=== PATIENT | male | born 1975 | race Caucasian/White ===

== ENCOUNTER 2018-01-08 17:13 | Emergency (ER) | payer SELFPAY ==
--- NOTE | 2018-01-08 18:47 | ER ---
Nurse's Notes [facility] Name: Jean Montes III Age: 42 yrs Sex: Male : 1975 Arrival Date: 01/08/2018 Time: 17:16 Bed 17 Private MD: Diagnosis: Acute tonsillitis, unspecified Presentation: 01/08 17:19 Presenting complaint: Patient states: last few days, my throat is hurting, and started hj to cough and hard to catch up my breath; reports fever and chills; denies taking meds OCCUP THER:. Transition of care: patient was not received from another setting of care. Onset of symptoms was January 08, 2018. Risk Assessment: Do you want to hurt yourself or someone else? Patient reports no desire to harm self or others. Initial Sepsis Screen: Does the patient meet any 2 criteria? No. Patient's initial sepsis screen is negative. Does the patient have a suspected source of infection? No. Patient's initial sepsis screen is negative. Care prior to arrival: None. 17:19 Method Of Arrival: Ambulatory 17:19 Acuity: ANA 4 hj Triage Assessment: 17:21 General: Appears in no apparent distress. uncomfortable, Behavior is calm, cooperative, hj appropriate for age. Pain: Complains of pain in throat Pain currently is 8 out of 10 on a pain scale. EENT: Reports pain in throat when swallowing. Historical: - Allergies: 17:21 PENICILLINS; hj - Home Meds: 17:21 REFLUX MEDICATION daily [Active]; hj - PMHx: 17:21 GERD; Migraines; hj - PSHx: 17:21 Hernia repair; Knee surgery; Vasectomy; hj - Immunization history:: Adult Immunizations up to date. - Social history:: Smoking status: Patient uses tobacco products, smokes one-half pack cigarettes per day, Patient/guardian denies using alcohol. - Ebola Screening: : Patient negative for fever greater than or equal to 101.5 degrees Fahrenheit, and additional compatible Ebola Virus Disease symptoms Patient denies exposure to infectious person Patient denies travel to an Ebola-affected area in the 21 days before illness onset. - Family history:: not pertinent. - Hospitalizations: : No recent hospitalization is reported. Screenin:21 Abuse screen: Denies threats or abuse. Denies injuries from another. Nutritional hj screening: No deficits noted. Tuberculosis screening: No symptoms or risk factors identified. Fall Risk None identified. Assessment: 17:22 Respiratory: Airway is patent Respiratory effort is even, unlabored, Respiratory hj pattern is regular, symmetrical, Breath sounds are clear. EENT: Throat. 17:40 General: Appears in no apparent distress. uncomfortable, Behavior is calm, cooperative, jl7 appropriate for age. Pain: Complains of pain in sore throat. Neuro: Level of Consciousness is awake, alert, obeys commands, Oriented to person, place, time, situation. Cardiovascular: Patient's skin is warm and dry. Respiratory: Airway is patent Respiratory effort is even, unlabored, Respiratory pattern is regular, symmetrical, Breath sounds are clear bilaterally. EENT: Throat is reddened. Derm: Skin is pink, warm \T\ dry. Vital Signs: 17:22 BP 114 / 75; Pulse 90; Resp 18; Temp 97.8(TE); Pulse Ox 96% on R/A; Weight 99.79 kg; hj Height 6 ft. 1 in. (185.42 cm); Pain 8/10; 18:22 BP 123 / 76; Pulse 86; Resp 17; Pulse Ox 100% on R/A; mh5 17:22 Body Mass Index 29.03 (99.79 kg, 185.42 cm) ED Course: 17:16 Patient arrived in ED. rg4 17:20 Triage completed. hj 17:22 Arm band placed on right wrist. hj 17:22 Patient has correct armband on for positive identification. Bed in low position. Call hj light in reach. Side rails up X 1. Adult w/ patient. 17:26 Milagros Castellanos FNP is PHCP. kav 17:26 Minh Cano MD is Attending Physician. kav 17:45 Strep swab sent to lab. jl7 18:19 Jose Juan Dela Cruz, GAYLE is Primary Nurse. jl7 18:26 Pulse ox on. NIBP on. mh5 18:26 Strep Sent. 5 18:50 No provider procedures requiring assistance completed. Patient did not have IV access aa5 during this emergency room visit. Administered Medications: No medications were administered Outcome: 18:46 Discharge ordered by . kav 18:50 Discharged to home ambulatory. aa5 18:50 Condition: stable 18:50 Discharge instructions given to patient, Instructed on discharge instructions, follow up and referral plans. medication usage, Demonstrated understanding of instructions, follow-up care, medications, Prescriptions given X 2. 18:51 Patient left the ED. aa5 Signatures: Milagros Castelalnos FNP FNP kav Calderon, Audri RN RN aa5 Charanjit Warner RN RN Melissa Schwartz 4 Rekha Ruiz [facility] Jose Juan Dela Cruz RN RN jl7 Corrections: (The following items were deleted from the chart) 17:24 17:22 Pulse 90bpm; Resp 18bpm; Pulse Ox 96% RA; Temp 97.8F Temporal; 99.79 kg; Height 6 hj ft. 1 in.; BMI: 29.0; Pain 8/10; hj
--- NOTE | 2018-01-08 18:47 | EDPHYS ---
Physician Documentation [facility] Name: Jean Montes III Age: 42 yrs Sex: Male : 1975 Arrival Date: 01/08/2018 Time: 17:16 Bed 17 Private MD: ED Physician Minh Cano HPI: 01/08 17:34 This 42 yrs old Male presents to ER via Ambulatory with complaints of Sore kav Throat, Cough, Breathing Difficulty. 17:35 The patient presents with sore throat. kav 18:04 The patient describes throat pain as raw, scratchy. Onset: The symptoms/episode kav began/occurred acutely, 2 day(s) ago. Severity of symptoms: At their worst the symptoms were moderate, just prior to arrival. The patient has not experienced similar symptoms in the past. The patient has not recently seen a physician. current everyday smoker. Historical: - Allergies: 17:21 PENICILLINS; hj - Home Meds: 17:21 REFLUX MEDICATION daily [Active]; hj - PMHx: 17:21 GERD; Migraines; hj - PSHx: 17:21 Hernia repair; Knee surgery; Vasectomy; hj - Immunization history:: Adult Immunizations up to date. - Social history:: Smoking status: Patient uses tobacco products, smokes one-half pack cigarettes per day, Patient/guardian denies using alcohol. - Ebola Screening: : Patient negative for fever greater than or equal to 101.5 degrees Fahrenheit, and additional compatible Ebola Virus Disease symptoms Patient denies exposure to infectious person Patient denies travel to an Ebola-affected area in the 21 days before illness onset. - Family history:: not pertinent. - Hospitalizations: : No recent hospitalization is reported. ROS: 18:05 Constitutional: Negative for fever, chills, and weight loss, Eyes: Negative for injury, kav pain, redness, and discharge, Neck: Negative for injury, pain, and swelling, Cardiovascular: Negative for chest pain, palpitations, and edema, Respiratory: Negative for shortness of breath, cough, wheezing, and pleuritic chest pain, Abdomen/GI: Negative for abdominal pain, nausea, vomiting, diarrhea, and constipation, Back: Negative for injury and pain, : Negative for injury, bleeding, discharge, and swelling, MS/Extremity: Negative for injury and deformity, Skin: Negative for injury, rash, and discoloration, Neuro: Negative for headache, weakness, numbness, tingling, and seizure, Psych: Negative for depression, anxiety, suicide ideation, homicidal ideation, and hallucinations, Allergy/Immunology: Negative for hives, rash, and allergies, Endocrine: Negative for neck swelling, polydipsia, polyuria, polyphagia, and marked weight changes, Hematologic/Lymphatic: Negative for swollen nodes, abnormal bleeding, and unusual bruising. 18:05 ENT: Positive for sore throat, Negative for sinus congestion, difficulty swallowing, difficulty handling secretions. Exam: 18:05 Constitutional: This is a well developed, well nourished patient who is awake, alert, kav and in no acute distress. Head/Face: Normocephalic, atraumatic. Eyes: Pupils equal round and reactive to light, extra-ocular motions intact. Lids and lashes normal. Conjunctiva and sclera are non-icteric and not injected. Cornea within normal limits. Periorbital areas with no swelling, redness, or edema. Neck: Trachea midline, no thyromegaly or masses palpated, and no cervical lymphadenopathy. Supple, full range of motion without nuchal rigidity, or vertebral point tenderness. No Meningismus. Chest/axilla: Normal chest wall appearance and motion. Nontender with no deformity. No lesions are appreciated. Cardiovascular: Regular rate and rhythm with a normal S1 and S2. No gallops, murmurs, or rubs. Normal PMI, no JVD. No pulse deficits. Respiratory: Lungs have equal breath sounds bilaterally, clear to auscultation and percussion. No rales, rhonchi or wheezes noted. No increased work of breathing, no retractions or nasal flaring. Abdomen/GI: Soft, non-tender, with normal bowel sounds. No distension or tympany. No guarding or rebound. No evidence of tenderness throughout. Back: No spinal tenderness. No costovertebral tenderness. Full range of motion. Skin: Warm, dry with normal turgor. Normal color with no rashes, no lesions, and no evidence of cellulitis. MS/ Extremity: Pulses equal, no cyanosis. Neurovascular intact. Full, normal range of motion. Neuro: Awake and alert, GCS 15, oriented to person, place, time, and situation. Cranial nerves II-XII grossly intact. Motor strength 5/5 in all extremities. Sensory grossly intact. Cerebellar exam normal. Normal gait. Psych: Awake, alert, with orientation to person, place and time. Behavior, mood, and affect are within normal limits. 18:05 ENT: Posterior pharynx: erythema, that is moderate. Vital Signs: 17:22 BP 114 / 75; Pulse 90; Resp 18; Temp 97.8(TE); Pulse Ox 96% on R/A; Weight 99.79 kg; hj Height 6 ft. 1 in. (185.42 cm); Pain 8/10; 18:22 BP 123 / 76; Pulse 86; Resp 17; Pulse Ox 100% on R/A; mh5 17:22 Body Mass Index 29.03 (99.79 kg, 185.42 cm) hj MDM: 18:45 Data reviewed: vital signs, nurses notes, lab test result(s). [facility] 18:46 Medical screening is not applicable. [facility] 01/08 17:38 Order name: Strep; Complete Time: 18:45 [facility] 01/08 18:32 Order name: Throat Culture EDMS Administered Medications: No medications were administered Disposition: 18:54 Co-signature as Attending Physician, Minh Cano MD. rn Disposition: 01/08/18 18:46 Discharged to Home. Impression: Acute tonsillitis, unspecified. - Condition is Stable. - Discharge Instructions: Tonsillitis. - Prescriptions for Zithromax Z- Leno 250 mg Oral Tablet - take 1 tablet by ORAL route as directed for 5 days Day 1 - take two (2) tablets one time. Day 2, 3, 4 , 5 take one (1) tablet once daily.; 6 tablet. Medrol (Leno) 4 mg Oral Tablets, Dose Pack - take 1 tablet by ORAL route as directed - follow package instructions; 1 packet. - Medication Reconciliation Form, Thank You Letter, Antibiotic Education form. - Follow up: Private Physician; When: 5 - 6 days; Reason: If symptoms return, Recheck today's complaints, Continuance of care, Re-evaluation by your physician. - Problem is new. - Symptoms are unchanged. Signatures: Dispatcher [employer] EDMS Milagros Castellanos, BUILDINGS AND GROUNDS SUPERVISOR BUILDINGS AND GROUNDS SUPERVISOR Minh Sandra MD MD rn Calderon, Audri, RN RN [facility] Charanjit Warner RN RN hj Corrections: (The following items were deleted from the chart) 18:51 18:46 01/08/2018 18:46 Discharged to Home. Impression: Acute tonsillitis, unspecified. aa5 Condition is Stable. Forms are Medication Reconciliation Form, Thank You Letter, Antibiotic Education, Prescription Opioid Use. Follow up: Private Physician; When: 5 - 6 days; Reason: If symptoms return, Recheck today's complaints, Continuance of care, Re-evaluation by your physician. Problem is new. Symptoms are unchanged. kav
== END 2018-01-08 18:51 | disposition home or self-care (01) ==
LOC: ER 17:13
DX: J03.90 Acute tonsillitis, unspecified (principal); F17.210 Nicotine dependence, cigarettes, uncomplicated; Z88.0 Allergy status to penicillin
CPT/HCPCS: 87070; 87081; 99283

== ENCOUNTER 2018-08-18 17:45 | Emergency (ER) | payer SELFPAY ==
[2018-08-18 18:47] LABS: Absolute Monocytes 0.6 K/uL (0.1-1.3); Absolute Neutrophil 6.1 K/uL (1.8-8.0); Basophils % 0.9 % (0-1.3); Eosinophils % 3.8 % (0-4.4); Hematocrit 49.1 % (39.6-49.0); Lymphocytes % 21.8 % (15.3-44.8); Monocytes % 7.1 % (3.3-12.3); RBC Red Blood Cell Count 5.48 M/uL (4.33-5.43)
[2018-08-18 19:01] LABS: ALT/SGPT 25 U/L (12-78); AST/SGOT 15 U/L (15-37); Albumin 3.9 g/dL (3.4-5.0); Alkaline Phosphatase 101 U/L (45-117); BUN Blood Urea Nitrogen 16 mg/dL (7-18); Bicarbonate 25 mmol/L (21-32); Bilirubin Direct < 0.1 mg/dL (0-0.2); Bilirubin Total 0.3 mg/dL (0.2-1.0); Glucose Level 86 mg/dL (74-106); NT PRO-BNP 21 pg/mL (<125); Protein, Total 7.2 g/dL (6.4-8.2); Sodium Level 143 mmol/L (136-145); Troponin (Emerg Dept Use Only) < 0.02 ng/mL (0.0-0.045)
--- NOTE | 2018-08-18 19:16 | RAD REPORT ---
EXAM DESCRIPTION: RAD - Chest Single View - 08/18/2018 6:59 pm CLINICAL HISTORY: COUGH Chest pain. COMPARISON: Chest Pa And Lat (2 Views) dated 11/29/2016 FINDINGS: Portable technique limits examination quality. Mild bilateral pulmonary opacities are present likely representing pulmonary edema. Trace right pleur al effusion is seen. The heart is mildly prominent size. No displaced fractures. IMPRESSION: Mild CHF versus volume overload pattern.
[2018-08-18] MEDS ORDERED: AZITHROMYCIN 250 MG TAB ONE (19:59)
--- NOTE | 2018-08-18 21:14 | ER ---
Nurse's Notes [facility] Name: Jean Montes III Age: 43 yrs Sex: Male : 1975 Arrival Date: 08/18/2018 Time: 17:46 Bed 5 Private MD: Diagnosis: Chest pain, unspecified Presentation: 08/18 17:52 Presenting complaint: Intermittent substernal chest pain, right upper back pain, and hb SOB that started while in bed 2 nights ago. Transition of care: patient was not received from another setting of care. Onset of symptoms was August 16, 2018. Risk Assessment: Do you want to hurt yourself or someone else? Patient reports no desire to harm self or others. Care prior to arrival: None. 17:52 Method Of Arrival: Ambulatory hb 17:52 Acuity: ANA 3 hb 19:24 Initial Sepsis Screen: Does the patient meet any 2 criteria? No. Patient's initial ph sepsis screen is negative. Does the patient have a suspected source of infection? No. Patient's initial sepsis screen is negative. Historical: - Allergies: 17:55 No Known Allergies; hb - Home Meds: 17:55 Zantac Oral [Active]; hb - PMHx: 17:55 GERD; Migraines; hb - PSHx: 17:55 Hernia repair; Knee surgery; Vasectomy; hb - Immunization history:: Adult Immunizations up to date. - Social history:: Smoking status: Patient uses tobacco products, smokes one-half pack cigarettes per day, Smoking status: Patient/guardian denies using alcohol, street drugs, The patient lives with family. - Ebola Screening: : No symptoms or risks identified at this time. - Family history:: not pertinent. Screenin:21 Abuse screen: Denies threats or abuse. Denies injuries from another. Nutritional ph screening: No deficits noted. Tuberculosis screening: No symptoms or risk factors identified. Fall Risk None identified. Assessment: 18:30 General: Appears in no apparent distress. comfortable, Behavior is calm, cooperative, ph appropriate for age. Pain: Complains of pain in mid-sternal area Pain radiates to right scapular area Pain began 2-3 days ago. Neuro: Level of Consciousness is awake, alert, obeys commands, Oriented to person, place, time, situation. Cardiovascular: Reports chest pain, shortness of breath, Denies nausea, palpitations, syncope, vomiting, Capillary refill < 3 seconds in bilateral fingers Patient's skin is warm and dry. Chest pain is located in substernal area radiates to right back. Respiratory: Reports shortness of breath at rest Airway is patent Respiratory effort is even, unlabored, Respiratory pattern is regular, symmetrical. Derm: Skin is intact, is healthy with good turgor, Skin is pink, warm \T\ dry. Musculoskeletal: Circulation, motion, and sensation intact. Range of motion: intact in all extremities. 20:00 Reassessment: Patient appears in no apparent distress at this time. Patient is alert, lp1 oriented x 3, equal unlabored respirations, skin warm/dry/pink. Patient requesting to be sent home after speaking with Provider; Provider notified Patient denies pain at this time. 20:00 Respiratory: Reports shortness of breath on exertion. lp1 Vital Signs: 17:53 BP 154 / 92; Pulse 102; Resp 20; Temp 97.9; Pulse Ox 95% on R/A; Pain 6/10; hb 18:50 BP 116 / 68; Pulse 85; Resp 18; Pulse Ox 96% on R/A; ph 19:30 BP 130 / 88; Pulse 86; Resp 17; Pulse Ox 98% on R/A; lp1 20:30 BP 144 / 88; Pulse 80; Resp 14; Pulse Ox 98% on R/A; lp1 21:18 BP 117 / 75; Pulse 78; Resp 18; Pulse Ox 97% on R/A; lp1 ED Course: 17:46 Patient arrived in ED. as 17:53 Triage completed. hb 17:53 Arm band placed on. hb 17:55 Mar Chiu MD is Attending Physician. ma2 18:15 Florinda Osborn, GAYLE is Primary Nurse. ph 18:15 Inserted saline lock: 22 gauge in right antecubital area, using aseptic technique. ph Blood collected. 19:00 XRAY Chest (1 view) In Process Unspecified. EDMS 19:25 Patient has correct armband on for positive identification. Bed in low position. Call ph light in reach. Side rails up X 1. promotional advertising assistant on. Pulse ox on. NIBP on. 19:25 Patient maintains SpO2 saturation greater than 95% on room air. ph 20:30 Repeat lab(s) drawn. by me, sent to lab. lp1 20:45 No provider procedures requiring assistance completed. lp1 21:18 IV discontinued, No redness/swelling at site. Pressure dressing applied. lp1 Administered Medications: 20:30 Drug: AZITHromycin 500 mg Route: PO; lp1 21:22 Follow up: Response: No adverse reaction lp1 Outcome: 21:13 Discharge ordered by . ma2 21:18 Discharged to home ambulatory. lp1 21:18 Condition: good 21:18 Discharge instructions given to patient, Instructed on discharge instructions, follow up and referral plans. medication usage, Demonstrated understanding of instructions, follow-up care, medications, Prescriptions given X 2. 21:22 Patient left the ED. lp1 Signatures: Dispatcher [employer] EDMS Jaye Ruiz Laura, RN RN 1 Florinda Osborn RN RN ph Baxter, Heather, RN RN Mar Chiu MD MD [facility]
--- NOTE | 2018-08-18 21:14 | EDPHYS ---
Physician Documentation [facility] Name: Jean Montes III Age: 43 yrs Sex: Male : 1975 Arrival Date: 08/18/2018 Time: 17:46 Bed 5 Private MD: ED Physician Mar Chiu HPI: 08/18 19:40 This 43 yrs old Male presents to ER via Ambulatory with complaints of Chest ma2 Pain, Shortness Of Breath. 19:40 The patient or guardian reports chest pain that is located primarily in the substernal ma2 area. Onset: gradually, 1 day(s) ago. Associated signs and symptoms: Pertinent positives: cough, shortness of breath, Pertinent negatives: abdominal pain, dizziness, lower extremity pain. The chest pain is described as aching. Duration: The patient or guardian reports multiple episodes. Severity of pain: At its worst the pain was mild in the emergency department the pain is unchanged. The patient has not experienced similar symptoms in the past. . Historical: - Allergies: 17:55 No Known Allergies; hb - Home Meds: 17:55 Zantac Oral [Active]; hb - PMHx: 17:55 GERD; Migraines; hb - PSHx: 17:55 Hernia repair; Knee surgery; Vasectomy; hb - Immunization history:: Adult Immunizations up to date. - Social history:: Smoking status: Patient uses tobacco products, smokes one-half pack cigarettes per day, Smoking status: Patient/guardian denies using alcohol, street drugs, The patient lives with family. - Ebola Screening: : No symptoms or risks identified at this time. - Family history:: not pertinent. ROS: 19:40 Constitutional: Negative for fever, chills, and weight loss. ma2 19:40 Respiratory: Negative for shortness of breath, cough, wheezing, and pleuritic chest pain, Abdomen/GI: Negative for abdominal pain, nausea, diarrhea, and constipation, Back: Negative for injury and pain, Neuro: Negative for headache, weakness, numbness, tingling, and seizure, Psych: Negative for depression, anxiety, suicide ideation, homicidal ideation, and hallucinations. 19:40 Cardiovascular: Positive for chest pain, Negative for palpitations, acute changes. 19:40 All other systems are negative. Exam: 19:40 Constitutional: This is a well developed, well nourished patient who is awake, alert, ma2 and in no acute distress. Eyes: Pupils equal round and reactive to light, extra-ocular motions intact. Lids and lashes normal. Conjunctiva and sclera are non-icteric and not injected. Cornea within normal limits. Periorbital areas with no swelling, redness, or edema. ENT: Nares patent. No nasal discharge, no septal abnormalities noted. Tympanic membranes are normal and external auditory canals are clear. Oropharynx with no redness, swelling, or masses, exudates, or evidence of obstruction, uvula midline. Mucous membranes moist. Chest/axilla: Normal chest wall appearance and motion. Nontender with no deformity. No lesions are appreciated. Cardiovascular: Regular rate and rhythm with a normal S1 and S2. No gallops, murmurs, or rubs. Normal PMI, no JVD. No pulse deficits. Respiratory: Lungs have equal breath sounds bilaterally, clear to auscultation and percussion. No rales, rhonchi or wheezes noted. No increased work of breathing, no retractions or nasal flaring. Abdomen/GI: Soft, non-tender, with normal bowel sounds. No distension or tympany. No guarding or rebound. No evidence of tenderness throughout. Skin: Warm, dry with normal turgor. Normal color with no rashes, no lesions, and no evidence of cellulitis. MS/ Extremity: Pulses equal, no cyanosis. Neurovascular intact. Full, normal range of motion. Neuro: Awake and alert, GCS 15, oriented to person, place, time, and situation. Cranial nerves II-XII grossly intact. Motor strength 5/5 in all extremities. Sensory grossly intact. Cerebellar exam normal. Normal gait. Vital Signs: 17:53 BP 154 / 92; Pulse 102; Resp 20; Temp 97.9; Pulse Ox 95% on R/A; Pain 6/10; hb 18:50 BP 116 / 68; Pulse 85; Resp 18; Pulse Ox 96% on R/A; ph 19:30 BP 130 / 88; Pulse 86; Resp 17; Pulse Ox 98% on R/A; lp1 20:30 BP 144 / 88; Pulse 80; Resp 14; Pulse Ox 98% on R/A; lp1 21:18 BP 117 / 75; Pulse 78; Resp 18; Pulse Ox 97% on R/A; lp1 MDM: 17:55 Patient medically screened. ma2 19:40 Differential diagnosis: acute pericarditis, anxiety, coronary artery disease ma2 gastroesophageal reflux disease (GERD), stable angina. HEART Score: History:. Data reviewed: vital signs, nurses notes. Counseling: I had a detailed discussion with the patient and/or guardian regarding: the historical points, exam findings, and any diagnostic results supporting the discharge/admit diagnosis, the presence of at least one elevated blood pressure reading (>120/80) during this emergency department visit, the need for outpatient follow up. ED course: patient need to be admitted for acs rule out, he does not want to be admitted i discussed risk of leaving includes having mi and worsening outcome that may include , try to keep him in for repeat trop he did not agree to stay 4 hours, however after negotiating he will stay 2 hrs and get a repeated trop and then see his pcp tomorrow for further evaluation . 08/18 18:18 Order name: Basic Metabolic Panel; Complete Time: 19:12 ne2 08/18 18:18 Order name: CBC with Diff; Complete Time: 19:12 ne2 08/18 18:18 Order name: LFT's; Complete Time: 19:12 ne2 08/18 18:18 Order name: Magnesium; Complete Time: 19:12 ne2 08/18 18:18 Order name: NT PRO-BNP; Complete Time: 19:12 ma2 08/18 18:18 Order name: PT-INR; Complete Time: 19:12 ne2 08/18 18:18 Order name: Troponin (emerg Dept Use Only); Complete Time: 19:12 ne2 08/18 18:18 Order name: XRAY Chest (1 view); Complete Time: 19:33 ma2 08/18 18:18 Order name: EKG; Complete Time: 18:19 ma2 08/18 18:18 Order name: Cardiac monitoring; Complete Time: 18:29 ma2 08/18 18:18 Order name: EKG - Nurse/Tech; Complete Time: 18:29 ma2 08/18 19:40 Order name: Troponin I: repeat troponin at 8:30 ma2 08/18 19:40 Order name: Troponin I; Complete Time: 21:13 EDMS 08/18 18:18 Order name: IV Saline Lock; Complete Time: 18:30 ma2 08/18 18:18 Order name: Labs collected and sent; Complete Time: 18:30 ma2 08/18 18:18 Order name: O2 Per Protocol; Complete Time: 18:30 ma2 08/18 18:18 Order name: O2 Sat Monitoring; Complete Time: 18:30 ma2 Administered Medications: 20:30 Drug: AZITHromycin 500 mg Route: PO; lp1 21:22 Follow up: Response: No adverse reaction lp1 Disposition: 08/18/18 21:13 Discharged to Home. Impression: Chest pain, unspecified. - Condition is Stable. - Discharge Instructions: Nonspecific Chest Pain. - Prescriptions for Zithromax Z- Leno 250 mg Oral Tablet - take 1 tablet by ORAL route as directed for 5 days Day 1 - take two (2) tablets one time. Day 2, 3, 4 , 5 take one (1) tablet once daily.; 6 tablet. Tylenol- Codeine #3 300-30 mg Oral Tablet - take 2 tablet by ORAL route every 6 hours As needed; 30 tablet. - Medication Reconciliation Form, Thank You Letter, Antibiotic Education, Prescription Opioid Use form. - Follow up: Private Physician; When: Tomorrow; Reason: Continuance of care. Signatures: Dispatcher [employer] EDTegan Loera RN RN lp1 Keli Anderson RN RN Mar Chiu MD MD ma2 Corrections: (The following items were deleted from the chart) 21:22 21:13 08/18/2018 21:13 Discharged to Home. Impression: Chest pain, unspecified. lp1 Condition is Stable. Discharge Instructions: Nonspecific Chest Pain. Prescriptions for Zithromax Z-Leno 250 mg Oral Tablet - take 1 tablet by ORAL route as directed for 5 days Day 1 - take two (2) tablets one time. Day 2, 3, 4 , 5 take one (1) tablet once daily.; 6 tablet. and Forms are Medication Reconciliation Form, Thank You Letter, Antibiotic Education, Prescription Opioid Use. Follow up: Private Physician; When: Tomorrow; Reason: Continuance of care. ma2
--- NOTE | 2018-08-19 15:52 | EKG ---
Test Date: 2018-08-18 Test Time: 18:04:23 [employer] Specialist: MANOHAR MEASUREMENT RESULTS: Intervals: Rate: 94 SD: 176 QRSD: 86 QT: 330 QTc: 412 [place]: P: 34 SD: 176 QRS: 10 T: 34 INTERPRETIVE STATEMENTS: Normal sinus rhythm Cannot rule out Anterior infarct, age undetermined Abnormal ECG No previous ECG available for comparison Electronically Signed On 08-19-18 15:50:30 CDT by Jeromy Orourke
== END 2018-08-18 21:22 | disposition home or self-care (01) ==
LOC: ER 17:45
DX: R07.9 Chest pain, unspecified (principal); K21.9 Gastro-esophageal reflux disease without esophagitis; F17.210 Nicotine dependence, cigarettes, uncomplicated
CPT/HCPCS: 36415; 71045; 80048; 80076; 83735; 83880; 84484; 85025; 85610; 93005; 99285

== ENCOUNTER 2022-07-12 18:58 | Emergency (ER) | payer SELFPAY ==
--- OUTSIDE RECORDS SUMMARY | 2022-07-12 19:01 | XMS REPORT | Continuity of Care Document ---
:1975 Author Organization [facility] t Address [address] [place] [address] Care Team Providers Name Role Phone Veronica Carrillo Attending Clinician Veronica COX Attending Clinician Unavailable Problems Condition Condition Condition Status Onset Resolution Last Treating Co mments Source Name Details Category Date Date Treatment Clinician Date No known No known Disease Unive rs active active ity of problems problems [facility] Allergies, Adverse Reactions, Alerts Allergy Allergy Status Severity Reaction(s) Onset Inactive Treating Comm ents Source Name Type Date Date Clinician NO KNOWN Drug Active Univers ALLERGIE Class ity of S [facility] Social History Social Habit Start Date Stop Date Quantity Comments Source Exposure to Not sure [facility] SARS-CoV-2 (event) Medica l Branch Sex Assigned At [birth year] [facility] 00:00:00 00:00:00 [facility] Smoking Status Start Date Stop Date Source Unknown if ever smoked [facility] Medications Ordered Filled Start Stop Current Ordering Indication Dosage Frequency Signature Comments Components Source Medication Medication Date Date Medication? Clinician (SIG) Name Name amoxicillin 2015-06 Yes 1{tbl} Take 1 Un cindi -clavulanat 2-20 tablet by ity of e 00:00: mouth [place] (AUGMENTIN) 00 every 12 Medi senia 875-125 mg (twelve) Branc h per tablet hours. ELIZABETH-D 2015-06 Yes 1{tbl} Take 1 Univ ers 24 HOUR 2-20 tablet by ity of 180-240 mg 00:00: mouth [place] per 24 hr 00 daily. Medical tablet Branch Vital Signs Vital Name Observation Time Observation Value Comments Source Systolic blood 2020-12-25 19:47:00 129 mm[Hg] Univer sity of pressure [facility] Diastolic blood 2020-12-25 19:47:00 74 mm[Hg] Unive rsity of pressure [facility] Heart rate 2020-12-25 19:47:00 95 /min [facility] Body temperature 2020-12-25 19:47:00 37.06 Namrata [facility] Respiratory rate 2020-12-25 19:47:00 16 /min [facility] Body height 2020-12-25 19:47:00 185.4 [facility] Body weight 2020-12-25 19:47:00 111.131 kg [facility] BMI 2020-12-25 19:47:00 32.32 kg/m2 [facility] Oxygen saturation in 2020-12-25 19:47:00 96 /min [facility] Arterial blood by [facility] Pulse oximetry Branch Procedures Procedure Date / Time Performed Performing Clinician Sournaty e XR ANKLE 3+ VW LEFT 2020-12-25 20:14:14 Jesus Parekh [facility] XR FOOT 3+ VW LEFT 2020-12-25 20:14:14 Jesus Parekh [facility] NOTICE OF PRIVACY 2020-12-25 19:33:03 Doctor Unassigned, No Univ [facility] PRACTICES Name Medical Branch Encounters Start End Encounter Admission Attending Care Care Encounter Source Date/Time Date/Time Type Type Clinicians Facility Department ID 2020-12-25 2020-12-25 Emergency Veronica Cox [facility] [id number] Univers 14:52:00 17:49:00 Alexia Feldman [id number] i ty [facility] [id number] [facility] [id number] [facility] senia 084 Branch 2020-12-25 2020-12-25 Emergency X Veronica COX [facility] ERT [id number] Univers 14:52:00 14:52:00 ity [facility] Results Test Test Test Results Result Source Description Time Comments Comments XR FOOT 3+ VW : 1. ?No acute [facility] 25 osseous abnormality of [place] [facility] 20:47:36 the left foot is Branch identified. RL: [id number] ORDERING PHYSICIAN: JESUS PAREKH THREE VIEWS OF THE LEFT FOOT. DATE: ?12/25/2020 CLINICAL INDICATIONS: ?Left foot swelling and bruising. COMPARISON: ?None. FINDINGS: ?Three views of the left foot demonstrate no evidence for acutefracture, subluxation or destructive osseous lesion. Inferior calcanealspurring is noted. No significant soft tissue swelling or radiopaqueforeign body is identified. [facility], Radiant Results Inft User - 12/25/2020 3:48 PM CDT ORDERING PHYSICIAN: JESUS WARRENEE VIEWS OF THE LEFT FOOT.DATE: 12/25/2020LINICAL INDICATIONS: Left foot swelling and bruising.COMPARISON: None.FINDINGS: Three views of the left foot demonstrate no evidence for acutefracture, subluxation or destructive osseous lesion. Inferior calcanealspurring is noted. No significant soft tissue swelling or radiopaqueforeign body is identified.IMPRESSIONImp ression:1. No acute osseous abnormality of the left foot is identified.RL: [id number] ANKLE 3+ VW 1. Diffuse soft tissue University of LEFT 25 swelling of the ankle [facility] Medical 20:46:15 without underlying Branch fracture ordislocation.2. Plantar spur. RL: [id number] AFC: [id number] End of report ORDERING PHYSICIAN: JESUS PAREKH CLINICAL HISTORY: swelling, bruising TECHNIQUE: 3 views of the left ankle TECHNICAL QUALITY: Good COMPARISON: None FINDINGS: The bones are normal in density. There is no fracture. There isno dislocation. The ankle mortise is maintained. There is diffuse softtissue swelling of the ankle. There is no large joint effusion. There is aplantar spur measuring approximately 11 mm. [facility], Radiant Results Inft User - 12/25/2020 3:47 PM CDT ORDERING PHYSICIAN: JESUS CMLINICAL HISTORY: swelling, bruising TECHNIQUE: 3 views of the left ankle TECHNICAL QUALITY: GoodCOMPARISON: NoneFINDINGS: The bones are normal in density. There is no fracture. There isno dislocation. The ankle mortise is maintained. There is diffuse softtissue swelling of the ankle. There is no large joint effusion. There is aplantar spur measuring approximately 11 mm.IMPRESSION1. Diffuse soft tissue swelling of the ankle without underlying fracture ordislocation.2. Plantar spur.RL: [id number]: [id number] of report
[2022-07-12 19:59] LABS: Hematocrit 47.1 % (39.6-49.0); Lymphocytes % 18.1 % (15.3-44.8); MCV 89.8 fL (80-100); MPV 8.7 fL (7.6-11.3); RBC Red Blood Cell Count 5.25 M/uL (4.33-5.43)
--- NOTE | 2022-07-12 19:59 | RAD REPORT ---
EXAM DESCRIPTION: RAD - Chest Single View - 07/12/2022 7:49 pm CLINICAL HISTORY: CHEST PAIN Chest pain. COMPARISON: Chest Single View dated 08/18/2018; Chest Pa And Lat (2 Views) dated 11/29/2016 FINDINGS: Portable technique limits examination quality. Mild interstitial pulmonary edema. The heart is mildly prominent size. No displaced fractures. IMPRESSION: Mild CHF pattern.
[2022-07-12 20:18] LABS: Potassium 3.8 mmol/L (3.5-5.1); Troponin High Sensitivity 7.1 pg/mL (<58.9)
[2022-07-12 21:13] LABS: SARS-CoV-2 Antigen Rapid Res Negative (Negative)
--- NOTE | 2022-07-12 21:32 | RAD REPORT ---
EXAM DESCRIPTION: CT - Chest For Pe Angio - 07/12/2022 9:24 pm CLINICAL HISTORY: Chest pain. Dyspnea COMPARISON: No comparisons TECHNIQUE: CT angiogram of the pulmonary arteries was performed with MIP. All CT scans are performed using dose optimization technique as appropriate and may include automated exposure control or mA/KV adjustment according to patient size. FINDINGS: No evidence of pulmonary thromboembolism. No acute aortic finding demonstrated. Mild linear subsegmental atelectasis is seen right lung base. The lungs are otherwise clear. No significant pericardial or pleural fluid. No concerning bony finding. IMPRESSION: No evidence of pulmonary thromboembolism. No acute lung findings.
--- NOTE | 2022-07-12 21:42 | ER ---
Nurse's Notes [facility] Name: Jean Montes III Age: 47 yrs Sex: Male : 1975 Arrival Date: 07/12/2022 Time: 19:04 Bed 15 Private MD: Diagnosis: Chest pain, unspecified Presentation: 07/12 19:11 Chief complaint: Patient states: "I started having chest pain around 1pm today. It's in mb9 the middle of my chest and goes to my back. I've had chest pain like this before on Saturday but I thought it was heartburn. It hurts when I take a deep breath". Coronavirus screen: Vaccine status: Patient reports being unvaccinated. Ebola Screen: No symptoms or risks identified at this time. Initial Sepsis Screen: Does the patient meet any 2 criteria? No. Patient's initial sepsis screen is negative. Does the patient have a suspected source of infection? No. Patient's initial sepsis screen is negative. Risk Assessment: Do you want to hurt yourself or someone else? Patient reports no desire to harm self or others. Onset of symptoms was July 12, 2022. 19:11 Acuity: ANA 3 mb9 19:11 Method Of Arrival: Ambulatory mb9 Historical: - Allergies: 19:13 No Known Allergies; mb9 - PMHx: 19:13 GERD; Migraines; mb9 - PSHx: 19:13 None; mb9 - Immunization history:: Adult Immunizations up to date. - Social history:: Smoking status: Patient reports the use of cigarette tobacco products, smokes one pack cigarettes per day. - Family history:: not pertinent. - Hospitalizations: : No recent hospitalization is reported. Screenin:46 [facility] ED Fall Risk Assessment (Adult) History of falling in the last 3 months, lg3 including since admission No falls in past 3 months (0 pts). Abuse screen: Denies threats or abuse. Denies injuries from another. Nutritional screening: No deficits noted. Tuberculosis screening: No symptoms or risk factors identified. Assessment: 19:46 General: Appears in no apparent distress. comfortable, Behavior is calm, cooperative. lg3 Pain: Complains of pain in chest Pain radiates to back Pain began 1 day ago. Neuro: No deficits noted. Gonzalez Agitation-Sedation Scale (RASS): 0 - Alert and Calm Level of Consciousness is awake, alert, obeys commands, Oriented to person, place, time, situation. Cardiovascular: No deficits noted. Reports chest pain, Capillary refill < 3 seconds Clubbing of nail beds is absent JVD is absent Patient's skin is warm and dry. Respiratory: No deficits noted. Reports pain with respiration Airway is patent Trachea midline Respiratory effort is even, unlabored, Respiratory pattern is regular, symmetrical. GI: No deficits noted. No signs and/or symptoms were reported involving the gastrointestinal system. Abdomen is round non-distended. : No deficits noted. No signs and/or symptoms were reported regarding the genitourinary system. EENT: No deficits noted. No signs and/or symptoms were reported regarding the EENT system. Derm: No deficits noted. No signs and/or symptoms reported regarding the dermatologic system. Skin is intact, is healthy with good turgor, Skin is dry, Skin is normal. Musculoskeletal: No deficits noted. No signs and/or symptoms reported regarding the musculoskeletal system. Circulation, motion, and sensation intact. Range of motion: intact in all extremities. 20:27 Reassessment: Patient appears in no apparent distress at this time. No changes from lg3 previously documented assessment. Patient and/or family updated on plan of care and expected duration. Pain level reassessed. Patient is alert, oriented x 3, equal unlabored respirations, skin warm/dry/pink. 21:37 Reassessment: Patient appears in no apparent distress at this time. No changes from lg3 previously documented assessment. Patient and/or family updated on plan of care and expected duration. Pain level reassessed. Patient is alert, oriented x 3, equal unlabored respirations, skin warm/dry/pink. Vital Signs: 19:11 BP 152 / 86; Pulse 94; Resp 23; Temp 98.4; Pulse Ox 96% on R/A; Weight 106.59 kg; mb9 Height 6 ft. 1 in. (185.42 cm); Pain 10/10; 20:27 BP 125 / 85; Pulse 90; Resp 19; Pulse Ox 96% on R/A; lg3 21:37 BP 127 / 93; Pulse 92; Resp 18 S; Pulse Ox 97% on R/A; lg3 19:11 Body Mass Index 31.00 (106.59 kg, 185.42 cm) 9 ED Course: 19:04 Patient arrived in ED. am2 19:05 Minh Cano MD is Attending Physician. rn 19:13 Triage completed. mb9 19:13 Arm band placed on. mb9 19:13 Placed in gown. Bed in low position. Call light in reach. Side rails up X 1. Client mb9 placed on continuous cardiac and pulse oximetry monitoring. NIBP monitoring applied. studio operator on. 19:46 Inserted saline lock: 20 gauge in right antecubital area, using aseptic technique. lg3 Blood collected. Patient maintains SpO2 saturation greater than 95% on room air. 19:51 XRAY Chest (1 view) In Process Unspecified. EDMS 20:49 SARS RAPID Sent. lg3 21:26 CT Chest For PE Angio In Process Unspecified. EDMS 21:53 Monisha Haney, RN is Primary Nurse. lg3 21:53 No provider procedures requiring assistance completed. IV discontinued, intact, lg3 bleeding controlled, No redness/swelling at site. Pressure dressing applied. Administered Medications: No medications were administered Medication: 19:13 VIS not applicable for this client. mb9 Outcome: 21:41 Discharge ordered by . rn 21:53 Discharged to home ambulatory, with family. lg3 21:53 Condition: stable 21:53 Discharge instructions given to patient, Instructed on discharge instructions, follow up and referral plans. Demonstrated understanding of instructions, follow-up care. 21:54 Patient left the ED. lg3 Signatures: Dispatcher [employer] EDMS Minh Cano MD MD rn Moreno, Amanda am2 Monisha Haney, RN RN lg3 Rosemarie Hennessy RN RN mb9
--- NOTE | 2022-07-12 21:42 | EDPHYS ---
Physician Documentation [facility] Name: Jean Montes III Age: 47 yrs Sex: Male : 1975 Arrival Date: 07/12/2022 Time: 19:04 Bed 15 Private MD: ED Physician Minh Cano HPI: 07/12 19:13 This 47 yrs old Male presents to ER via Ambulatory with complaints of Chest Pain. rn 19:13 The patient or guardian reports chest pain that is located primarily in the anterior rn chest wall. Onset: 6 hour(s) ago. The pain does not radiate. Associated signs and symptoms: Pertinent negatives: abdominal pain, headache, lower extremity swelling, lightheadedness, palpitations, shortness of breath, syncope, vomiting. The chest pain is described as sharp, stabbing. Duration: The patient or guardian reports multiple episodes, that are intermittent. Modifying factors: The symptoms are alleviated by nothing. the symptoms are aggravated by deep breath, movement. Severity of pain: At its worst the pain was mild in the emergency department the pain has improved. The patient has experienced a previous episode. The patient has not recently seen a physician. Pt reports chest pain that began 6 hours ago, sharp/stabbing, worse with deep breath, no trauma, happened once before 3 days ago, but went away on its own. No hx of dvt/PE. + long smoking history. . Historical: - Allergies: 19:13 No Known Allergies; mb9 - PMHx: 19:13 GERD; Migraines; mb9 - PSHx: 19:13 None; mb9 - Immunization history:: Adult Immunizations up to date. - Social history:: Smoking status: Patient reports the use of cigarette tobacco products, smokes one pack cigarettes per day. - Family history:: not pertinent. - Hospitalizations: : No recent hospitalization is reported. ROS: 19:13 Constitutional: Negative for fever, chills, and weight loss, Eyes: Negative for injury, rn pain, redness, and discharge, Cardiovascular: Negative for palpitations, and edema, Respiratory: Negative for shortness of breath, cough, wheezing Abdomen/GI: Negative for abdominal pain, nausea, vomiting, diarrhea, and constipation, Back: Negative for injury and pain, MS/Extremity: Negative for injury and deformity, Skin: Negative for injury, rash, and discoloration, Neuro: Negative for headache, weakness, numbness, tingling, and seizure. Exam: 19:13 Constitutional: This is a well developed, well nourished patient who is awake, alert, rn and in no acute distress. Head/Face: Normocephalic, atraumatic. ENT: no stridor Cardiovascular: Regular rate and rhythm. No pulse deficits. Respiratory: + mild tachypnea, no retractions, + mild exp wheezing. Abdomen/GI: Soft, non-tender Skin: Warm, dry MS/ Extremity: Pulses equal, no cyanosis. Neuro: Awake and alert, GCS 15 19:40 ECG was reviewed by the Attending Physician. rn Vital Signs: 19:11 BP 152 / 86; Pulse 94; Resp 23; Temp 98.4; Pulse Ox 96% on R/A; Weight 106.59 kg; mb9 Height 6 ft. 1 in. (185.42 cm); Pain 10/10; 20:27 BP 125 / 85; Pulse 90; Resp 19; Pulse Ox 96% on R/A; lg3 21:37 BP 127 / 93; Pulse 92; Resp 18 S; Pulse Ox 97% on R/A; lg3 19:11 Body Mass Index 31.00 (106.59 kg, 185.42 cm) mb9 MDM: 19:05 Patient medically screened. rn 19:40 Differential diagnosis: acute myocardial infarction, acute pericarditis, anxiety, rn coronary artery disease chest wall pain, costochondritis, pleurisy, pneumonia, pneumothorax, pulmonary embolus, stable angina. HEART Score: History: Slightly Suspicious (0), ECG: Non specific repolarization disturbance / LBTB / PM (1), Age: > 45 and < 65 years (1), Risk Factors: No Risk Factors Known (0), Troponin: < or = 1 x Normal Limit (0), Total Score = 2. 21:41 Data reviewed: vital signs, nurses notes, lab test result(s), EKG, radiologic studies, rn CT scan, plain films, and as a result, I will discharge patient. Independent interpretation of the following test(s) in the Emergency Department EKG: See my EKG interpretation above X-Ray: My interpretation is CXR neg for pneumonia/pneumothorax. Counseling: I had a detailed discussion with the patient and/or guardian regarding: the historical points, exam findings, and any diagnostic results supporting the discharge/admit diagnosis, lab results, radiology results, the need for outpatient follow up, to return to the emergency department if symptoms worsen or persist or if there are any questions or concerns that arise at home. Counseling: I had a detailed discussion with the patient and/or guardian regarding: smoking cessation. Special discussion: Based on the patient's history, exam, and Dx evaluation, there is no indication for emergent intervention or inpatient Tx. It is understood by the patient/guardian that if the Sx's persist or worsen they need to return immediately for re-evaluation. I discussed with the patient/guardian in detail that at this point there is no indication for admission to the hospital. It is understood, however, that if the symptoms persist or worsen the patient needs to return immediately for re-evaluation. Based on the history and exam findings, there is no indication for further emergent testing or inpatient evaluation. I discussed with the patient/guardian the need to see the primary care provider for further evaluation of the symptoms. 07/12 19:12 Order name: Basic Metabolic Panel; Complete Time: 20:07/12 19:12 Order name: CBC with Diff; Complete Time: :07/12 19:12 Order name: D-Dimer; Complete Time: :07/12 19:12 Order name: NT PRO-BNP; Complete Time: 20:07/12 19:12 Order name: Troponin HS; Complete Time: :07/12 20:35 Order name: SARS RAPID; Complete Time: 21:14 07/12 19:12 Order name: XRAY Chest (1 view); Complete Time: 20:03 07/12 20:04 Interpretation: Abnormal. 07/12 19:12 Order name: EKG; Complete Time: 19:13 07/12 19:12 Order name: Cardiac monitoring; Complete Time: :07/12 19:12 Order name: EKG - Nurse/Tech; Complete Time: :07/12 19:12 Order name: IV Saline Lock; Complete Time: :07/12 19:12 Order name: Labs collected and sent; Complete Time: :07/12 19:12 Order name: O2 Per Protocol; Complete Time: 19:07/12 20:35 Order name: CT Chest For PE Angio; Complete Time: 21:38 rn 07/12 19:12 Order name: O2 Sat Monitoring; Complete Time: 19:46 rn EC:40 Rate is 90 beats/min. Rhythm is regular. QRS Runge is Normal. TN interval is normal. QRS rn interval is normal. QT interval is normal. No Q waves. T waves are Normal. No ST changes noted. Clinical impression: NSR w/ Non-specific ST/T Changes. Interpreted by me. Reviewed by me. Administered Medications: No medications were administered Disposition Summary: 07/12/22 21:41 Discharge Ordered Location: Home rn Problem: new rn Symptoms: have improved rn Condition: Stable rn Diagnosis - Chest pain, unspecified rn Followup: rn - With: Private Physician - When: As needed - Reason: Recheck today's complaints, Re-evaluation by your physician Discharge Instructions: - Discharge Summary Sheet rn - Nonspecific Chest Pain, Adult rn - Steps to Quit Smoking rn Forms: - Medication Reconciliation Form rn - Thank You Letter rn - Antibiotic yarn washer - Prescription Opioid Use rn Signatures: Dispatcher [employer] Minh Gilbert MD MD rn Breneman, Mary Beth, RN RN mb9
[2022-07-12 22:52] VITALS: TEMP 98.4
[2022-07-12 22:54] VITALS: BP 127/93; O2SAT 97
== END 2022-07-12 21:54 | disposition home or self-care (01) ==
LOC: ER 18:58
DX: R07.89 Other chest pain (principal); F17.210 Nicotine dependence, cigarettes, uncomplicated; Z20.822 Contact with and (suspected) exposure to COVID-19
CPT/HCPCS: 36415; 71045; 71275; 80048; 83880; 84484; 85025; 85379; 87811; 93005; 99284; Q9967

== ENCOUNTER 2022-09-26 16:29 | Emergency (ER) | payer SELFPAY ==
--- OUTSIDE RECORDS SUMMARY | 2022-09-26 16:35 | XMS REPORT | Continuity of Care Document ---
:1975 Author Organization [facility] t Address [address] [facility] [address] [place] [address] Care Team Providers Name Role Phone Veronica Carrillo Attending Clinician Veronica COX Attending Clinician Unavailable Problems Condition Condition Condition Status Onset Resolution Last Treating Co mments Source Name Details Category Date Date Treatment Clinician Date No known No known Disease Unive rs active active ity of problems problems [facility] Allergies, Adverse Reactions, Alerts Allergy Allergy Status Severity Reaction(s) Onset Inactive Treating Comm ents Source Name Type Date Date Clinician NO KNOWN Drug Active Univers ALLERGIE Class ity of S [facility] Social History Social Habit Start Date Stop Date Quantity Comments Source Exposure to Not sure [facility] SARS-CoV-2 (event) Medica l Branch Sex Assigned At [birth year] [facility] 00:00:00 00:00:00 [facility] Smoking Status Start Date Stop Date Source Unknown if ever smoked [facility] Medications Ordered Filled Start Stop Current [...] 19:47:00 129 mm[Hg] Univer sity of pressure [facility] Diastolic blood 2020-12-25 19:47:00 74 mm[Hg] Unive rsity of pressure [facility] Heart rate 2020-12-25 19:47:00 95 /min [facility] Body temperature 2020-12-25 19:47:00 37.06 Namrata [facility] Respiratory rate 2020-12-25 19:47:00 16 /min [facility] Body height 2020-12-25 19:47:00 [facility] Body weight 2020-12-25 19:47:00 111.131 kg [facility] BMI 2020-12-25 19:47:00 32.32 kg/m2 [facility] Oxygen saturation in 2020-12-25 19:47:00 96 /min [facility] Arterial blood by [facility] Pulse oximetry Branch Procedures Procedure Date / Time Performed Performing Clinician Sournaty e XR ANKLE 3+ VW LEFT 2020-12-25 20:14:14 Jesus Parekh [facility] XR FOOT 3+ VW LEFT 2020-12-25 20:14:[address] [facility] NOTICE OF PRIVACY 2020-12-25 19:33:03 Doctor Unassigned, No [facility] PRACTICES Name Medical Branch Encounters Start End Encounter Admission Attending Care Care Encounter Source Date/Time Date/Time Type Type Clinicians Facility Department ID 2020-12-25 2020-12-25 Emergency Veronica Cox [facility] [id number] Univers 14:52:00 17:49:00 Alexia Feldman [id number] [facility] [id number] [facility] [id number] [facility] senia 084 Branch 2020-12-25 2020-12-25 Emergency X eVronica COX [facility] ERT [id number] Univers 14:52:00 14:52:00 ity [facility] Results Test Test Test Results Result Source Description Time Comments Comments XR FOOT 3+ VW : 1. ?No acute University of [facility] 25 [place] fracture ordislocation.2. Plantar spur. RL: 518 AFC: [id number] End of report ORDERING PHYSICIAN: JESUS PAREKH [...] without underlying fracture ordislocation.2. Plantar spur.RL: 518AFC: [id number] of report
--- NOTE | 2022-09-26 16:50 | EDPHYS ---
Physician Documentation [facility] Name: Jean Montes III Age: 47 yrs Sex: Male : 1975 Arrival Date: 09/26/2022 Time: 16:29 Bed IW1 Private MD: ED Physician Minh Cano HPI: 09/26 16:39 This 47 yrs old Male presents to ER via Unassigned with complaints of Facial Swelling. rn 16:39 The patient presents with pain, swelling. The problem is located in the left mouth. rn Onset: The symptoms/episode began/occurred 1 week(s) ago. Duration: The symptoms are continuous. Modifying factors: The symptoms are alleviated by nothing, the symptoms are aggravated by chewing, talking, wearing dentures. Associated signs and symptoms: Pertinent positives: pain, redness in area, swelling, Pertinent negatives: fever. Severity of symptoms: At their worst the symptoms were moderate, in the emergency department the symptoms are unchanged. The patient has not experienced similar symptoms in the past. The patient has not recently seen a physician. Pt reports thinks dentures cut his cheek/gum and now getting infected. Reports mild swelling to left gum/cheek. No fever. . Historical: - Allergies: 16:43 No Known Allergies; ap3 - PMHx: 16:43 GERD; Migraines; ap3 - Immunization history:: Client reports having NOT received the Covid vaccine. - Social history:: Smoking status: Patient reports the use of cigarette tobacco products, smokes one-half pack cigarettes per day. - Family history:: not pertinent. - Hospitalizations: : No recent hospitalization is reported. ROS: 16:39 ENT: + left oral swelling and pain rn Exam: 16:39 Constitutional: This is a well developed, well nourished patient who is awake, alert, rn and in no acute distress. Head/Face: Normocephalic, atraumatic. ENT: No teeth, no evidence of intraoral or buccal abscess, but + tenderness along gumline. Vital Signs: 16:41 BP 138 / 96; Pulse 104; Resp 18; Temp 99; Pulse Ox 95% ; Weight 106.59 kg; Height 6 ft. ap3 1 in. ; Pain 5/10; 16:41 Body Mass Index 31.00 (106.59 kg, 185.42 cm) ap3 16:41 Pain Scale: Adult ap3 MDM: 16:33 Patient medically screened. rn 16:46 Differential diagnosis: dental caries, dental abscess, gingivostomatitis. Differential rn diagnosis: gingivitis. Data reviewed: vital signs, nurses notes. Data reviewed: and as a result, I will discharge patient. Counseling: I had a detailed discussion with the patient and/or guardian regarding: the historical points, exam findings, and any diagnostic results supporting the discharge/admit diagnosis, the need for outpatient follow up, to return to the emergency department if symptoms worsen or persist or if there are any questions or concerns that arise at home. Special discussion: I discussed with the patient/guardian in detail that at this point there is no indication for admission to the hospital. It is understood, however, that if the symptoms persist or worsen the patient needs to return immediately for re-evaluation. Based on the history and exam findings, there is no indication for further emergent testing or inpatient evaluation. I discussed with the patient/guardian the need to see a dentist for further evaluation of the symptoms. Administered Medications: No medications were administered Disposition Summary: 09/26/22 16:49 Discharge Ordered Location: Home rn Problem: new rn Symptoms: are unchanged rn Condition: Stable rn Diagnosis - Facial cellulitis rn Followup: rn - With: Private Physician - When: As needed - Reason: Recheck today's complaints, Re-evaluation by your physician Discharge Instructions: - Discharge Summary Sheet rn - Cellulitis, Adult rn Forms: - Medication Reconciliation Form rn - Thank You Letter rn - Antibiotic furniture sander - Prescription Opioid Use rn Prescriptions: - Clindamycin HCl 300 mg Oral Capsule - take 1 capsule by ORAL route every 6 hours for 10 days; 40 capsule; Refills: 0, rn Product Selection Permitted - Medrol (Leno) 4 mg Oral Tablets, Dose Pack - take 1 tablet by ORAL route as directed - follow package instructions; 1 rn packet; Refills: 0, Product Selection Permitted Signatures: Minh Cano MD MD rn Rubi Arroyo RN RN ap3
--- NOTE | 2022-09-26 16:50 | ER ---
Nurse's Notes [facility] Name: Jean Montes III Age: 47 yrs Sex: Male : 1975 Arrival Date: 09/26/2022 Time: 16:29 Bed IW1 Private MD: Diagnosis: Facial cellulitis Presentation: 09/26 16:41 Chief complaint: Patient states: he started having left sided facial swelling approx 2 ap3 weeks ago. patient reports he believes his dentures may have cut him in his mouth. Coronavirus screen: At this time, the client does not indicate any symptoms associated with coronavirus-19. Ebola Screen: No symptoms or risks identified at this time. Initial Sepsis Screen: Does the patient meet any 2 criteria? HR > 90 bpm. Does the patient have a suspected source of infection? No. Patient's initial sepsis screen is negative. Risk Assessment: Do you want to hurt yourself or someone else? Patient reports no desire to harm self or others. Onset of symptoms was September 12, 2022. 16:41 Method Of Arrival: Ambulatory ap3 16:41 Acuity: ANA 4 ap3 Triage Assessment: 16:43 General: Appears in no apparent distress. Behavior is calm, cooperative, appropriate ap3 for age. Pain: Complains of pain in left jaw Pain currently is 5 out of 10 on a pain scale. Neuro: Level of Consciousness is awake, alert, obeys commands, Oriented to person, place, time, situation. Cardiovascular: Patient's skin is warm and dry. Respiratory: Airway is patent Respiratory effort is even, unlabored, Respiratory pattern is regular, symmetrical. Historical: - Allergies: 16:43 No Known Allergies; ap3 - PMHx: 16:43 GERD; Migraines; ap3 - Immunization history:: Client reports having NOT received the Covid vaccine. - Social history:: Smoking status: Patient reports the use of cigarette tobacco products, smokes one-half pack cigarettes per day. - Family history:: not pertinent. - Hospitalizations: : No recent hospitalization is reported. Screenin:[facility] ED Fall Risk Assessment (Adult) History of falling in the last 3 months, ap3 including since admission No falls in past 3 months (0 pts). Abuse screen: Denies threats or abuse. Nutritional screening: No deficits noted. Tuberculosis screening: No symptoms or risk factors identified. Vital Signs: 16:41 BP 138 / 96; Pulse 104; Resp 18; Temp 99; Pulse Ox 95% ; Weight 106.59 kg; Height 6 ft. ap3 1 in. ; Pain 5/10; 16:41 Body Mass Index 31.00 (106.59 kg, 185.42 cm) ap3 16:41 Pain Scale: Adult ap3 ED Course: 16:31 Patient arrived in ED. rg4 16:33 Minh Cano MD is Attending Physician. rn 16:43 Triage completed. ap3 16:44 Arm band placed on right wrist. ap3 16:44 Patient has correct armband on for positive identification. ap3 17:26 No provider procedures requiring assistance completed. Patient did not have IV access ap3 during this emergency room visit. Administered Medications: No medications were administered Medication: 16:44 VIS not applicable for this client. ap3 Outcome: 16:49 Discharge ordered by . rn 17:26 Discharged to home ambulatory. ap3 17:26 Condition: good 17:26 Discharge instructions given to patient, Instructed on discharge instructions, follow up and referral plans. medication usage, Demonstrated understanding of instructions, follow-up care, medications, Prescriptions given X 2. 17:26 Patient left the ED. ap3 Signatures: Minh Cano MD MD rn Garcia, Rubi 4 Rubi Arroyo RN RN ap3
[2022-09-26 18:03] VITALS: BP 138/96; TEMP 99; O2SAT 95
== END 2022-09-26 17:26 | disposition home or self-care (01) ==
LOC: ER 16:29
DX: L03.211 Cellulitis of face (principal)
CPT/HCPCS: 99283

== ENCOUNTER 2022-11-16 15:46 | Emergency (ER) | payer SELFPAY ==
--- OUTSIDE RECORDS SUMMARY | 2022-11-16 15:50 | XMS REPORT | Continuity of Care Document ---
:1975 Author Organization [facility] t Address [address] [facility] [address] [place] [address] Care Team Providers Name Role Phone Veronica Carrillo Attending Clinician Veronica COX Attending Clinician Unavailable Problems Condition Condition Condition Status Onset Resolution Last Treating Co mments Source Name Details Category Date Date Treatment Clinician Date No known No known Disease Unive rs active active ity of problems problems [facility] Allergies, Adverse Reactions, Alerts Allergy Allergy Status Severity Reaction(s) Onset Inactive Treating Comm ents Source Name Type Date Date Clinician NO KNOWN Drug Active Univers ALLERGIE Class ity of S [facility] Social History Social Habit Start Date Stop Date Quantity Comments Source Exposure to Not sure [facility] SARS-CoV-2 (event) Medica l Branch Sex Assigned At [birth year] [facility] 00:00:00 00:00:00 [facility] Smoking Status Start Date Stop Date Source Unknown if ever smoked [facility] Medications Ordered Filled Start Stop Current [...] 19:47:00 129 mm[Hg] Univer sity of pressure [facility] Diastolic blood 2020-12-25 19:47:00 74 mm[Hg] Unive rsity of pressure [facility] Heart rate 2020-12-25 19:47:00 95 /min [facility] Body temperature 2020-12-25 19:47:00 37.06 Namrata [facility] Respiratory rate 2020-12-25 19:47:00 16 /min [facility] height 2020-12-25 19:47:00 185.4 [facility] weight 2020-12-25 19:47:00 111.131 [facility] BMI 2020-12-25 19:47:00 32.32 kg/m2 [facility] Oxygen saturation in 2020-12-25 19:47:00 96 /min [facility] Arterial blood by [facility] Pulse oximetry Branch Procedures Procedure Date / Time Performed Performing Clinician Sournaty e XR ANKLE 3+ VW LEFT 2020-12-25 20:14:14 Jesus Parekh [facility] XR FOOT 3+ VW LEFT 2020-12-25 20:14:14 Jesus Parekh [facility] NOTICE OF PRIVACY 2020-12-25 19:33:03 Doctor Unassigned, No [facility] PRACTICES Name Medical Branch Encounters Start End Encounter Admission Attending Care Care Encounter Source Date/Time Date/Time Type Type Clinicians Facility Department ID 2020-12-25 2020-12-25 Emergency Veronica Cox [facility] [id number] Univers 14:52:00 17:49:00 Alexia Feldman [id number] i ty [facility] [id number] [facility] [id number] [facility] senia 084 Branch 2020-12-25 2020-12-25 Emergency X Veronica COX [facility] ERT [id number] Univers 14:52:00 14:52:00 ity [facility] Results Test Test Test Results Result Source Description Time Comments Comments XR FOOT 3+ VW : 1. ?No acute [facility] of [facility] 25 [place] [...] fracture ordislocation.2. Plantar spur. RL: 518 AFC: [id number] End of report ORDERING PHYSICIAN: JESUS PAREKH [...] without underlying fracture ordislocation.2. Plantar spur.RL: 518AFC: [id number] of report
[2022-11-16] MEDS ORDERED: NA CHLORIDE 0.9% 1,000 ML ONE ×2 (16:18→17:19)
[2022-11-16 16:38] LABS: Hematocrit 51.1 % (39.6-49.0); Lymphocytes % 16.9 % (15.3-44.8); MCV 90.3 fL (80-100); MPV 9.6 fL (7.6-11.3); RBC Red Blood Cell Count 5.66 M/uL (4.33-5.43)
[2022-11-16 16:42] LABS: Specific Gravity 1.028 (1.005-1.030); Urine Bacteria None Seen /HPF (<20); Urine Bilirubin NEGATIVE (Negative); Urine Blood Negative (Negative); Urine Clarity Clear (Clear); Urine Color Yellow (Yellow); Urine Glucose NEGATIVE (Negative); Urine Mucus 2+ /HPF (None Seen); Urine Protein TRACE (Negative); Urine RBC <5 /HPF (None Seen); Urine Urobilinogen 1+ (Normal)
[2022-11-16 16:50] LABS: Albumin 3.5 g/dL (3.4-5.0); Bilirubin Total 0.3 mg/dL (0.2-1.0); Protein, Total 7.2 g/dL (6.4-8.2)
--- NOTE | 2022-11-16 17:19 | RAD REPORT ---
EXAM DESCRIPTION: CT - Stone Protocol - 11/16/2022 4:37 pm CLINICAL HISTORY: Abdominal pain./constipation COMPARISON: None. TECHNIQUE: Computed axial tomography of the abdomen pelvis was obtained without oral or IV contrast. Lack of IV and oral contrast limits evaluation of solid organs, appendix, bowel, and vessels. Monae l reformatted images were obtained and reviewed. All CT scans are performed using dose optimization technique as appropriate and may include automated exposure control or mA/KV adjustment according to patient size. FINDINGS: A renal calculus is not seen. An ureteral calculus is not noted. A bladder calculus is not present. No hydronephrosis The liver, spleen, pancreas and adrenals appear grossly normal There is no evidence of diverticulitis. The appendix appears normal Moderate amount stool within the colon Right inguinal hernia repair. Small left inguinal hernia A small umbilical hernia IMPRESSION: Negative for a genitourinary calculus Moderate amount stool within the colon
--- NOTE | 2022-11-16 17:33 | EDPHYS ---
Physician Documentation [facility] Name: Jean Montes III Age: 47 yrs Sex: Male : 1975 Arrival Date: 11/16/2022 Time: 15:46 Bed 18 Private MD: ED Physician Hernandez Quiñonez HPI: 11/16 16:05 This 47 yrs old Male presents to ER via Ambulatory with complaints of Constipation, snw Abdominal Pain. 16:05 Onset: The symptoms/episode began/occurred suddenly. The patient has not experienced snw similar symptoms in the past. It is unknown whether or not the patient has recently seen a physician. inguinal hernia repair remotely, no vomiting/fever. Historical: - Allergies: 15:54 No Known Allergies; ml4 - Home Meds: 15:54 ibuprofen Oral [Active]; ml4 - PMHx: 15:54 GERD; Migraines; ml4 - PSHx: 15:54 Inguinal Hernia Repair; ml4 - Immunization history:: Adult Immunizations up to date, Client reports having NOT received the Covid vaccine. - Social history:: Smoking status: Patient reports the use of cigarette tobacco products, smokes one-half pack cigarettes per day, Patient/guardian denies using alcohol, street drugs, IV drugs. ROS: 16:05 Constitutional: Negative for fever, chills, and weight loss, Eyes: Negative for injury, snw pain, redness, and discharge, ENT: Negative for injury, pain, and discharge, Neck: Negative for injury, pain, and swelling, Cardiovascular: Negative for chest pain, palpitations, and edema, Respiratory: Negative for shortness of breath, cough, wheezing, and pleuritic chest pain, Back: Negative for injury and pain, : Negative for injury, bleeding, discharge, and swelling, MS/Extremity: Negative for injury and deformity, Skin: Negative for injury, rash, and discoloration, Neuro: Negative for headache, weakness, numbness, tingling, and seizure, Psych: Negative for depression, anxiety, suicide ideation, homicidal ideation, and hallucinations. 16:05 Abdomen/GI: Positive for constipation, abdominal cramps, abdominal distension. Exam: 16:04 Constitutional: This is a well developed, well nourished patient who is awake, alert, snw and in no acute distress. Head/Face: Normocephalic, atraumatic. Eyes: Pupils equal round and reactive to light, extra-ocular motions intact. Lids and lashes normal. Conjunctiva and sclera are non-icteric and not injected. Cornea within normal limits. Periorbital areas with no swelling, redness, or edema. ENT: Nares patent. No nasal discharge, no septal abnormalities noted. Tympanic membranes are normal and external auditory canals are clear. Oropharynx with no redness, swelling, or masses, exudates, or evidence of obstruction, uvula midline. Mucous membranes moist. Neck: Trachea midline, no thyromegaly or masses palpated, and no cervical lymphadenopathy. Supple, full range of motion without nuchal rigidity, or vertebral point tenderness. No Meningismus. Chest/axilla: Normal chest wall appearance and motion. Nontender with no deformity. No lesions are appreciated. Cardiovascular: Regular rate and rhythm with a normal S1 and S2. No gallops, murmurs, or rubs. Normal PMI, no JVD. No pulse deficits. Respiratory: Lungs have equal breath sounds bilaterally, clear to auscultation and percussion. No rales, rhonchi or wheezes noted. No increased work of breathing, no retractions or nasal flaring. Back: No spinal tenderness. No costovertebral tenderness. Full range of motion. Skin: Warm, dry with normal turgor. Normal color with no rashes, no lesions, and no evidence of cellulitis. MS/ Extremity: Pulses equal, no cyanosis. Neurovascular intact. Full, normal range of motion. Neuro: Awake and alert, GCS 15, oriented to person, place, time, and situation. Cranial nerves II-XII grossly intact. Motor strength 5/5 in all extremities. Sensory grossly intact. Cerebellar exam normal. Normal gait. Psych: Awake, alert, with orientation to person, place and time. Behavior, mood, and affect are within normal limits. 16:04 Abdomen/GI: Inspection: abdomen appears normal, Bowel sounds: diminished, in all quadrants, Palpation: mild abdominal tenderness, in all quadrants. Vital Signs: 15:51 BP 157 / 106; Pulse 110; Resp 20; Temp 98.4(T); Pulse Ox 95% ; Weight 106.59 kg; Height ml4 6 ft. 1 in. ; Pain 9/10; 18:15 BP 132 / 84; Pulse 84; Resp 18; Pulse Ox 97% on R/A; nj1 15:51 Body Mass Index 31.00 (106.59 kg, 185.42 cm) ml4 15:51 Pain Scale: Adult ml4 MDM: 15:54 Patient medically screened. snw 17:28 Differential diagnosis: bacterial infection, obstipation, fecal impaction. Data snw reviewed: vital signs, nurses notes. I considered the following discharge prescriptions or medication management in the emergency department Medications were administered in the Emergency Department. See AUG. ED course: Pt states when he was here previously, he was dx with facial cellulitis and given abx. The edema went down so pt stopped taking the abx. Pt states the mandible area infection has started to swell again. I will give pt abx for this as it will help GI transit, but I warned the pt that as he smokes, has repeated edema of this area, head and neck cancer is on the differential and that he must finish the abx and f/u with ENT. Pt voices understanding. 11/16 15:57 Order name: CBC with Diff; Complete Time: 16:50 snw 11/16 15:57 Order name: CMP; Complete Time: 16:50 snw 11/16 15:57 Order name: Urinalysis w/ reflexes; Complete Time: 16:43 snw 11/16 16:04 Order name: CT Stone Protocol; Complete Time: 17:19 snw 11/16 15:57 Order name: IV Saline Lock; Complete Time: 16:17 snw 11/16 15:57 Order name: Labs collected and sent; Complete Time: 16:17 snw 11/16 16:51 Order name: VS Recheck; Complete Time: 18:27 snw Administered Medications: 16:18 Drug: NS 0.9% IV 1000 ml Route: IV; Rate: 1 bolus; Site: right antecubital; os 17:10 Follow up: Response: No adverse reaction os 19:10 Follow up: IV Status: Completed infusion; IV Intake: 1000ml nj1 17:10 Drug: NS 0.9% IV 1000 ml Route: IV; Rate: 1 bolus; Site: right antecubital; os 19:10 Follow up: Response: No adverse reaction; IV Status: Completed infusion; IV Intake: nj1 1000ml 17:42 Drug: Lactulose PO 30 grams Volume: 45 ml; Route: PO; os 18:27 Follow up: Response: No adverse reaction nj1 17:42 Drug: Amoxicillin-Clavulanate PO 875 mg Route: PO; os 18:27 Follow up: Response: No adverse reaction nj1 Disposition: 11/17 16:39 I reviewed the patient's care provided by the Advanced Practice Provider and agree with jrLaquita the diagnosis and treatment plan. Disposition Summary: 11/16/22 17:33 Discharge Ordered Location: Home snw Condition: Stable snw Diagnosis - Dehydration snw - Constipation snw - Mandibular edema snw Followup: snw - With: Emergency Department - When: As needed - Reason: Worsening of condition Followup: snw - With: Private Physician - When: 2 - 3 days - Reason: Recheck today's complaints, Continuance of care, Re-evaluation by your physician Discharge Instructions: - Discharge Summary Sheet snw - Constipation, Adult snw - Dehydration, Adult snw - High-Fiber Eating Plan snw - Health Risks of Smoking snw - Rehydration, Adult snw Forms: - Medication Reconciliation Form snw - Thank You Letter snw - Antibiotic Education snw - Prescription Opioid Use snw Prescriptions: - Augmentin 875-125 mg Oral Tablet - take 1 tablet by ORAL route every 12 hours for 10 days; 20 tablet; Refills: 0, snw Product Selection Permitted - Lactulose 10 gram/15 mL Oral Solution - take 30 milliliters by ORAL route once daily for 5 days; 150 milliliter; snw Refills: 0, Product Selection Permitted Signatures: Dispatcher [employer] Patsy Michael, SPINAL SURGEON-C SPINAL SURGEON-Csnw Hernandez Quiñonez MD MD [id number] Rebecca Gant, RN RN os Jordy, RNIII, Jefry RN RN ml4 Brooke Adams RN nj1
--- NOTE | 2022-11-16 17:33 | ER ---
Nurse's Notes [facility] [place] [place] Name: Jean Montes III Age: 47 yrs Sex: Male : 1975 Arrival Date: 11/16/2022 Time: 15:46 Bed 18 Private MD: Diagnosis: Dehydration;Constipation;Mandibular edema Presentation: 11/16 15:52 Chief complaint: Patient states: Constipation x 3 days, no relief with laxative taken ml4 2x, nausea, no vomiting, tolerating PO. Coronavirus screen: At this time, the client does not indicate any symptoms associated with coronavirus-19. Ebola Screen: No symptoms or risks identified at this time. Initial Sepsis Screen: Does the patient meet any 2 criteria? No. Patient's initial sepsis screen is negative. Does the patient have a suspected source of infection? No. Patient's initial sepsis screen is negative. Risk Assessment: Do you want to hurt yourself or someone else? Patient reports no desire to harm self or others. Onset of symptoms was November 13, 2022. 15:52 Method Of Arrival: Ambulatory ml4 15:52 Acuity: ANA 3 ml4 15:59 Activity prior to arrival: None. ml4 16:52 Chief complaint:. ml4 Triage Assessment: 15:54 General: Appears in no apparent distress. uncomfortable, Behavior is calm, cooperative, ml4 appropriate for age. Pain: Denies pain. Complains of pain in right lower quadrant and left lower quadrant Pain radiates to low back area and left low back Pain currently is 9 out of 10 on a pain scale. Quality of pain is described as aching, Pain began 2-3 days ago. EENT: No deficits noted. No signs and/or symptoms were reported regarding the EENT system. Neuro: No deficits noted. Level of Consciousness is awake, alert, obeys commands, Oriented to person, place, time, situation. Cardiovascular: No deficits noted. Capillary refill < 3 seconds. Respiratory: No deficits noted. Airway is patent Respiratory effort is even, unlabored. GI: Reports lower abdominal pain, constipation. : No deficits noted. No signs and/or symptoms were reported regarding the genitourinary system. Derm: No deficits noted. No signs and/or symptoms reported regarding the dermatologic system. Musculoskeletal: No deficits noted. No signs and/or symptoms reported regarding the musculoskeletal system. Historical: - Allergies: 15:54 No Known Allergies; ml4 - Home Meds: 15:54 ibuprofen Oral [Active]; ml4 - PMHx: 15:54 GERD; Migraines; ml4 - PSHx: 15:54 Inguinal Hernia Repair; ml4 - Immunization history:: Adult Immunizations up to date, Client reports having NOT received the Covid vaccine. - Social history:: Smoking status: Patient reports the use of cigarette tobacco products, smokes one-half pack cigarettes per day, Patient/guardian denies using alcohol, street drugs, IV drugs. Screenin:59 [facility] ED Fall Risk Assessment (Adult) History of falling in the last 3 months, ml4 including since admission No falls in past 3 months (0 pts) Confusion or Disorientation No (0 pts) Intoxicated or Sedated No (0 pts) Impaired Gait No (0 pts) Mobility Assist Device Used No (0 pt) Altered Elimination No (0 pt) Score/Fall Risk Level 0 - 2 = Low Risk. Abuse screen: Denies threats or abuse. Nutritional screening: No deficits noted. Tuberculosis screening: No symptoms or risk factors identified. Assessment: 18:28 Reassessment: Patient appears in no apparent distress at this time. Patient and/or nj1 family updated on plan of care and expected duration. Pain level reassessed. Patient is alert, oriented x 3, equal unlabored respirations, skin warm/dry/pink. IV fluids infusing. Patient denies pain at this time. Vital Signs: 15:51 BP 157 / 106; Pulse 110; Resp 20; Temp 98.4(T); Pulse Ox 95% ; Weight 106.59 kg; Height ml4 6 ft. 1 in. ; Pain 9/10; 18:15 BP 132 / 84; Pulse 84; Resp 18; Pulse Ox 97% on R/A; nj1 15:51 Body Mass Index 31.00 (106.59 kg, 185.42 cm) ml4 15:51 Pain Scale: Adult ml4 ED Course: 15:48 Patient arrived in ED. im 15:52 Patsy Keys [facility]C [facility] snw 15:53 Hernandez Quiñonez MD is Attending Physician. snw 15:53 Triage completed. ml4 15:56 Arm band placed on right wrist. ml4 15:59 Patient taken to treatment room. ml4 15:59 Patient has correct armband on for positive identification. Bed in low position. Call ml4 light in reach. 16:08 Rebecca Gant, RN is Primary Nurse. os 16:16 Initial lab(s) drawn, by me, sent to lab. Urine collected: clean catch specimen, clear. mm9 Inserted saline lock: 20 gauge in right antecubital area, using aseptic technique. Blood collected. 16:17 Side rails up X 1. Pulse ox on. NIBP on. mm9 16:17 CBC with Diff Sent. mm9 16:17 CMP Sent. mm9 16:18 Urinalysis w/ reflexes Sent. mm9 16:38 CT Stone Protocol In Process Unspecified. EDMS 19:10 No provider procedures requiring assistance completed. nj1 19:10 IV discontinued, intact, bleeding controlled. nj1 Administered Medications: 16:18 Drug: NS 0.9% IV 1000 ml Route: IV; Rate: 1 bolus; Site: right antecubital; os 17:10 Follow up: Response: No adverse reaction os 19:10 Follow up: IV Status: Completed infusion; IV Intake: 1000ml nj1 17:10 Drug: NS 0.9% IV 1000 ml Route: IV; Rate: 1 bolus; Site: right antecubital; os 19:10 Follow up: Response: No adverse reaction; IV Status: Completed infusion; IV Intake: nj1 1000ml 17:42 Drug: Lactulose PO 30 grams Volume: 45 ml; Route: PO; os 18:27 Follow up: Response: No adverse reaction nj1 17:42 Drug: Amoxicillin-Clavulanate PO 875 mg Route: PO; os 18:27 Follow up: Response: No adverse reaction nj1 Medication: 19:10 VIS not applicable for this client. nj1 Intake: 19:10 IV: 1000ml; Total: 1000ml. nj1 19:10 IV: 1000ml; Total: 2000ml. nj1 Outcome: 17:33 Discharge ordered by . snqing 19:10 Discharged to home ambulatory. nj1 19:10 Condition: stable 19:10 Discharge instructions given to patient, Instructed on discharge instructions, follow up and referral plans. medication usage, Demonstrated understanding of instructions, follow-up care, medications, Prescriptions given X 2. 19:19 Patient left the ED. nj1 Signatures: Dispatcher [employer] EDMS Keys, Patsy, AUDIO VISUAL MANAGER-C AUDIO VISUAL MANAGER-Csnw Rekha Ruiz mm9 Brooke Adams, RN RN nj1 Rebecca Gant, RN RN os Nisha Carranza RNIII, Jefry, RN RN ml4 Corrections: (The following items were deleted from the chart) 18:38 18:28 Reassessment: Patient appears in no apparent distress at this time. Patient nj1 and/or family updated on plan of care and expected duration. Pain level reassessed. Patient is alert, oriented x 3, equal unlabored respirations, skin warm/dry/pink. nj1 19:18 18:28 Reassessment: Patient appears in no apparent distress at this time. Patient nj1 and/or family updated on plan of care and expected duration. Pain level reassessed. Patient is alert, oriented x 3, equal unlabored respirations, skin warm/dry/pink. IV fluids infusing. nj1
[2022-11-16] MEDS ORDERED: LACTULOSE 20 GM/30 ML UCUP ONE (17:46)
[2022-11-16] MEDS ORDERED: AMOX/K CLAV 875 MG TAB ONE (17:46)
[2022-11-16 20:23] VITALS: TEMP 98.4
[2022-11-16 20:25] VITALS: BP 132/84; O2SAT 97
== END 2022-11-16 19:19 | disposition home or self-care (01) ==
LOC: ER 15:46
DX: K59.00 Constipation, unspecified (principal); E86.0 Dehydration; R60.9 Edema, unspecified
CPT/HCPCS: 36415; 74176; 76377; 80053; 81001; 85025; 96360; 96361; 99284; J7030

== ENCOUNTER 2022-11-18 10:40 | Inpatient (IN) | payer SELFPAY ==
--- OUTSIDE RECORDS SUMMARY | 2022-11-18 10:44 | XMS REPORT | Continuity of Care Document ---
:1975 Author Organization [facility] t Address [address] [place] [address] [place] [id number] Care Team Providers Name Role Phone Veronica Carrillo Attending Clinician Veronica COX Attending Clinician Unavailable Problems Condition Condition Condition Status Onset Resolution Last Treating Co mments Source Name Details Category Date Date Treatment Clinician Date No known No known Disease Unive rs active active ity of problems problems [facility] Allergies, Adverse Reactions, Alerts Allergy Allergy Status Severity Reaction(s) Onset Inactive Treating Comm ents Source Name Type Date Date Clinician NO KNOWN Drug Active Univers ALLERGIE Class ity of S [facility] Social History Social Habit Start Date Stop Date Quantity Comments Source Exposure to Not sure [facility] SARS-CoV-2 (event) Medica l Branch Sex Assigned At [birth year] [facility] 00:00:00 00:00:00 [facility] Smoking Status Start Date Stop Date Source Unknown if ever smoked [facility] Medications Ordered Filled Start Stop [...] 19:47:00 129 mm[Hg] Univer sity of pressure [facility] Diastolic blood 2020-12-25 19:47:00 74 mm[Hg] [facility] rs[facility] of pressure [facility] Heart rate 2020-12-25 19:47:00 95 /min [facility] Body temperature 2020-12-25 19:47:00 37.06 Namrata [facility] Respiratory rate 2020-12-25 19:47:00 16 /min [facility] Body height 2020-12-25 19:47:00 185.4 cm [facility] Body weight 2020-12-25 19:47:00 111.131 kg [facility] BMI 2020-12-25 19:47:00 32.32 kg/m2 [facility] Oxygen saturation in 2020-12-25 19:47:00 96 /min [facility] Arterial blood by [facility] Pulse oximetry Branch Procedures Procedure Date / Time Performed Performing Clinician Sour e XR ANKLE 3+ VW LEFT 2020-12-25 20:14:14 Jesus Parekh [facility] XR FOOT 3+ VW LEFT 2020-12-25 20:14:14 Jesus Parekh [facility] NOTICE OF PRIVACY 2020-12-25 19:33:03 Doctor Unassigned, No Univ [facility] PRACTICES Name Medical Branch Encounters Start End Encounter Admission Attending Care Care Encounter Source Date/Time Date/Time Type Type Clinicians Facility Department ID 2020-12-25 2020-12-25 Emergency Veronica Cox [facility] [id number] Univers 14:52:00 17:49:00 Alexia Feldman [id number] [facility] [id number] [facility] [id number] [facility] 084 Branch 2020-12-25 2020-12-25 Emergency X Veronica COX [facility] ERT [id number] Univers 14:52:00 14:52:00 ity [facility] Results Test Test Test Results Result Source Description Time Comments Comments XR FOOT 3+ VW : 1. ?No acute [facility] [place] [id number] [place]seous [place] of [place] [facility] 20:47:36 [...] 12/25/2020 3:48 PM CDT ORDERING PHYSICIAN: JESUS LEEHREE VIEWS OF THE LEFT FOOT.DATE: 12/25/2020LINICAL INDICATIONS: Left foot swelling and bruising.COMPARISON: None.FINDINGS: Three views of the left foot demonstrate no evidence for acutefracture, subluxation or destructive osseous lesion. Inferior calcanealspurring is noted. No significant soft tissue swelling or radiopaqueforeign body is identified.IMPRESSIONImp ression:1. No acute osseous abnormality of the left foot is identified.RL: [id number] ANKLE 3+ VW 2020-12-01. Diffuse soft tissue University of LEFT 25 swelling of the ankle [facility] 20:46:15 without underlying Branch fracture ordislocation.2. Plantar spur. RL: [id number] AFC: [id number] End of report ORDERING PHYSICIAN: JESUS PAREKH [...] without underlying fracture ordislocation.2. Plantar spur.RL: [id number]: [id number] of report
[2022-11-18] MEDS ORDERED: FAMOTIDINE 20 MG/2 ML VIAL IV ONE (11:29)
[2022-11-18] MEDS ORDERED: ONDANSETRON 4 MG/2 ML VIAL ONE (11:29)
[2022-11-18] MEDS ORDERED: NA CHLORIDE 0.9% 1,000 ML ONE ×2 (11:29→13:20)
[2022-11-18 11:36] LABS: Absolute Lymphocytes (CBC) 0.9 K/uL (0.7-4.9); Hematocrit 54.6 % (39.6-49.0); Lymphocytes % 6.7 % (15.3-44.8); MCV 89.9 fL (80-100); MPV 9.1 fL (7.6-11.3); RBC Red Blood Cell Count 6.08 M/uL (4.33-5.43)
[2022-11-18 11:51] LABS: Albumin 3.8 g/dL (3.4-5.0); Bilirubin Total 0.9 mg/dL (0.2-1.0); Potassium 4.4 mEq/L (3.5-5.1); Protein, Total 7.8 g/dL (6.4-8.2)
--- NOTE | 2022-11-18 12:21 | RAD REPORT ---
EXAM DESCRIPTION: CT - Abdomen Pelvis W Contrast - 11/18/2022 11:47 am CLINICAL HISTORY: ABD PAIN COMPARISON: No comparisons TECHNIQUE: Thin cut axial CT imaging of the abdomen and pelvis was performed following intravenous a dministration of Isovue 300. Multiplanar reformats were generated and reviewed. All CT scans are performed using dose optimization technique as appropriate and may include automated exposure control or mA/KV adjustment according to patient size. FINDINGS: No suspicious findings in the lung bases. The liver, spleen, and pancreas show no suspicious findings. Gallbladder and biliary tree are also wi thout suspicious finding. Symmetric renal function is seen with no hydronephrosis or suspicious renal mass. Moderate small bowel fluid distention. Patent ileocecal bowel. Fluid distention of the ascending and proximal transverse colon. Mild bowel wall thickening and mucosal hyperenhancement along the descendi ng and sigmoid colon. No free air, free fluid or inflammatory stranding. No suspicious mass or bulky lymphadenopathy. Small left inguinal hernia containing fat. The urinary bladder is without significan t finding. No suspicious bony findings. IMPRESSION: Fluid distention of the small bowel and proximal large bowel, favored to represent ileus . Mild bowel wall thickening and mucosal hyperenhancement of the descending and sigmoid colon, sugges tive of segmental colitis.
--- NOTE | 2022-11-18 13:02 | ER ---
Nurse's Notes [facility] Name: Jean Montes III Age: 47 yrs Sex: Male : 1975 Arrival Date: 11/18/2022 Time: 10:40 Bed 5 Private MD: Diagnosis: Ileus, unspecified;Colitis;Elevated white blood cell count Presentation: 11/18 10:50 Chief complaint: Patient states: was seen in ED on Saturday for constipation; stated vg1 N/V/D since yesterday with RLQ pain. Coronavirus screen: Vaccine status: Patient reports receiving the 2nd dose of the covid vaccine. Client denies travel out of the [place] in the last 14 days. Ebola Screen: Patient negative for fever greater than or equal to 101.5 degrees Fahrenheit, and additional compatible Ebola Virus Disease symptoms Patient denies exposure to infectious person. Patient denies travel to an Ebola-affected area in the 21 days before illness onset. Initial Sepsis Screen: Does the patient meet any 2 criteria? HR > 90 bpm. Yes Does the patient have a suspected source of infection? No. Patient's initial sepsis screen is negative. Risk Assessment: Do you want to hurt yourself or someone else? Patient reports no desire to harm self or others. Onset of symptoms was November 17, 2022. 10:50 Method Of Arrival: Ambulatory vg1 10:50 Acuity: ANA 3 vg1 Triage Assessment: 10:52 General: Appears in no apparent distress. uncomfortable, Behavior is cooperative. Pain: vg1 Complains of pain in right lower quadrant Pain currently is 10 out of 10 on a pain scale. Pain began 1 day ago. Cardiovascular: Patient's skin is warm and dry. GI: Abdomen is round non-distended, Reports diarrhea, nausea, vomiting. Historical: - Allergies: 10:52 No Known Allergies; vg1 - PMHx: 10:52 GERD; Migraines; vg1 - PSHx: 10:52 inguinal hernia repair; vg1 - Immunization history:: Client reports having NOT received the Covid vaccine. - Social history:: Smoking status: Patient reports the use of cigarette tobacco products, smokes one-half pack cigarettes per day. Screenin:00 [facility] ED Fall Risk Assessment (Adult) History of falling in the last 3 months, ko1 including since admission No falls in past 3 months (0 pts) Confusion or Disorientation No (0 pts) Intoxicated or Sedated No (0 pts) Impaired Gait Yes (1 pt) Mobility Assist Device Used No (0 pt) Altered Elimination No (0 pt) Score/Fall Risk Level 0 - 2 = Low Risk Oriented to surroundings, Maintained a safe environment, Educated pt \T\ family on fall prevention, incl call for assistance when getting out of bed, Assessed \T\ reinforced patient's understanding of fall precautions, Provided non-skid footwear, Hourly rounding (assess needs \T\ fall precautionary measures) done, Used ambulatory aids as needed (educated on \T\ assisted with), Used gait belt as appropriate. Abuse screen: Denies threats or abuse. Denies injuries from another. Nutritional screening: No deficits noted. Tuberculosis screening: No symptoms or risk factors identified. Assessment: 11:00 General: Appears in no apparent distress. uncomfortable, ill, Behavior is calm, ko1 cooperative, appropriate for age. Pain: Complains of pain in abdomen and right lower quadrant. Neuro: No deficits noted. Cardiovascular: No deficits noted. Respiratory: No deficits noted. GI: Reports lower abdominal pain, normal bowel habits, vomiting. GI: Abdomen is flat. : No deficits noted. EENT: No deficits noted. Derm: No deficits noted. Musculoskeletal: No deficits noted. Vital Signs: 10:50 BP 130 / 95; Pulse 126; Resp 18; Temp 98.1(O); Pulse Ox 96% on R/A; Weight 106.59 kg; vg1 Height 6 ft. 1 in. ; Pain 10/10; 12:03 BP 128 / 90; Pulse 99; Resp 16; Pulse Ox 99% ; ko1 12:53 Pulse 99; Resp 18; Pulse Ox 98% ; ko1 10:50 Body Mass Index 31.00 (106.59 kg, 185.42 cm) vg1 10:50 Pain Scale: Adult vg1 ED Course: 10:42 Patient arrived in ED. mr 10:52 Triage completed. vg1 10:52 Arm band placed on. vg1 10:54 Mesha Tijerina RN is Primary Nurse. ko1 10:55 [facility]C [facility] kb 10:55 Debra Schumacher MD is Attending Physician. kb 11:00 Patient has correct armband on for positive identification. Bed in low position. Call ko1 light in reach. Pulse ox on. NIBP on. 11:00 Inserted saline lock: 20 gauge in right antecubital area, using aseptic technique. ko1 Blood collected. 11:49 Abdomen In Process Unspecified. EDMS 13:01 Peter Clarke MD is Hospitalizing Provider. kb 13:09 CBC Smear Scan Sent. ko1 14:53 No provider procedures requiring assistance completed. Patient admitted, IV remains in ko1 place. Administered Medications: 11:25 Drug: NS 0.9% IV 1000 ml Route: IV; Rate: 1 bolus; Site: right antecubital; ph 12:30 Follow up: IV Status: Completed infusion; IV Intake: 1000ml ko1 11:25 Drug: Famotidine IVP 20 mg Route: IVP; Site: right antecubital; ph 14:58 Follow up: Response: Nausea is decreased ko1 11:25 Drug: Ondansetron IVP 4 mg Route: IVP; Site: right antecubital; ph 14:58 Follow up: Response: Nausea is decreased ko1 13:21 Drug: metroNIDAZOLE IVPB 500 mg Volume: 100 ml; Route: IVPB; Rate: 200 ml/hr; Infused ko1 Over: 30 mins; Site: right antecubital; 13:21 Drug: NS 0.9% IV 1000 ml Route: IV; Rate: 125 ml/hr; Site: right antecubital; ko1 14:29 Drug: Ciprofloxacin IVPB 400 mg Volume: 200 ml; Route: IVPB; Infused Over: 60 mins; ko1 Site: right antecubital; Medication: 12:03 VIS not applicable for this client. ko1 Intake: 12:30 IV: 1000ml; Total: 1000ml. ko1 Outcome: 13:01 Decision to Hospitalize by Provider. kb 14:53 Admitted to Med/surg accompanied by tech, via wheelchair, room 208, with chart, Report ko1 called to GAYLE poole 14:53 Condition: good 14:53 Instructed on the need for admit, Demonstrated understanding of instructions. 15:06 Patient left the ED. ko1 Signatures: Dispatcher [employer] EDAK Jayna Huber, MARLENA WRIGHT-Rosemarie Caldwell Patricia RN RN Shanita Luna, RN RN vg1 Mesha Tijerina, RN RN ko1
--- NOTE | 2022-11-18 13:02 | EDPHYS ---
Physician Documentation [facility] Name: Jean Montes III Age: 47 yrs Sex: Male : 1975 Arrival Date: 11/18/2022 Time: 10:40 Bed 5 Private MD: ED Physician Debra Schumacher HPI: 11/18 11:18 This 47 yrs old Male presents to ER via Ambulatory with complaints of Vomiting. kb 11:18 The patient presents to the emergency department with nausea, vomiting, abdominal pain. kb Onset: The symptoms/episode began/occurred yesterday. Possible causes: unknown. The symptoms are aggravated by nothing. The symptoms are alleviated by nothing. Associated signs and symptoms: Pertinent positives: abdominal pain, nausea, vomiting, Pertinent negatives: diarrhea, fever. Severity of symptoms: At their worst the symptoms were moderate in the emergency department the symptoms are unchanged. The patient has not experienced similar symptoms in the past. The patient has been recently seen at the [facility] Emergency Department, for similar complaints labs were performed, CT scan was performed. Historical: - Allergies: 10:52 No Known Allergies; vg1 - PMHx: 10:52 GERD; Migraines; vg1 - PSHx: 10:52 inguinal hernia repair; vg1 - Immunization history:: Client reports having NOT received the Covid vaccine. - Social history:: Smoking status: Patient reports the use of cigarette tobacco products, smokes one-half pack cigarettes per day. ROS: 11:17 Constitutional: Negative for fever, chills, and weight loss. kb 11:17 Abdomen/GI: Positive for abdominal pain, nausea and vomiting, constipation. 11:17 Back: Positive for flank pain, on the right. 11:17 All other systems are negative. Exam: 11:17 Constitutional: This is a well developed, well nourished patient who is awake, alert, kb and in no acute distress. Head/Face: Normocephalic, atraumatic. ENT: Moist Mucous membranes Cardiovascular: Regular rate and rhythm with a normal S1 and S2. No gallops, murmurs, or rubs. No pulse deficits. Respiratory: Respirations even and unlabored. No increased work of breathing. Talking in full sentences Skin: Warm, dry with normal turgor. Normal color. MS/ Extremity: Pulses equal, no cyanosis. Neurovascular intact. Full, normal range of motion. Neuro: Awake and alert, GCS 15, oriented to person, place, time, and situation. Moves all extremities. Normal gait. 11:17 Abdomen/GI: Inspection: abdomen appears normal, Bowel sounds: normal, Palpation: soft, in all quadrants, moderate abdominal tenderness, in the right lower quadrant. 11:17 Back: CVA tenderness, that is mild, is noted on the right. Vital Signs: 10:50 BP 130 / 95; Pulse 126; Resp 18; Temp 98.1(O); Pulse Ox 96% on R/A; Weight 106.59 kg; vg1 Height 6 ft. 1 in. ; Pain 10/10; 12:03 BP 128 / 90; Pulse 99; Resp 16; Pulse Ox 99% ; ko1 12:53 Pulse 99; Resp 18; Pulse Ox 98% ; ko1 10:50 Body Mass Index 31.00 (106.59 kg, 185.42 cm) vg1 10:50 Pain Scale: Adult vg1 MDM: 10:55 Patient medically screened. kb 11:18 Data reviewed: vital signs, nurses notes. kb 13:00 Differential diagnosis: Nonspecific abd pain, gastritis, diverticulitis, colitis, bowel kb obstruction. Consideration of Admission/Observation Patient was admitted/placed on observation. Management of patient was discussed with the following: Hospitalist: Dr Clarke accepts pt for admission. Counseling: I had a detailed discussion with the patient and/or guardian regarding: the historical points, exam findings, and any diagnostic results supporting the discharge/admit diagnosis, lab results, radiology results, the need for further work-up and treatment in the hospital. 11/18 11:33 Order name: Comprehensive Metabolic Panel; Complete Time: 11:53 EDWY 11/18 11:33 Order name: Lipase; Complete Time: 11:53 EDW[facility] 11/18 11:33 Order name: CBC with Automated Diff; Complete Time: 13:39 EDW[facility] 11/18 11:54 Order name: CBC Smear Scan; Complete Time: 13:39 ED[facility] 11/18 13:53 Order name: CBC with Automated Diff ED[facility] 11/18 13:53 Order name: CBC with Automated Diff ED[facility] 11/18 13:53 Order name: Comprehensive Metabolic Panel [facility] 11/18 13:53 Order name: Comprehensive Metabolic Panel [facility] 11/18 11:31 Order name: Abdomen ; Complete Time: 12:22 ED[facility] 11/18 13:56 Order name: Abdomen 1 View (KUB) ED[facility] 11/18 13:53 Order name: NPO ED[facility] 11/18 13:55 Order name: Dr Marian Bains ED[facility]Y 11/18 10:55 Order name: IV Saline Lock; Complete Time: 11:25 kb 11/18 10:55 Order name: Labs collected and sent; Complete Time: 11:25 kb Administered Medications: 11:25 Drug: NS 0.9% IV 1000 ml Route: IV; Rate: 1 bolus; Site: right antecubital; ph 12:30 Follow up: IV Status: Completed infusion; IV Intake: 1000ml ko1 11:25 Drug: Famotidine IVP 20 mg Route: IVP; Site: right antecubital; ph 14:58 Follow up: Response: Nausea is decreased ko1 11:25 Drug: Ondansetron IVP 4 mg Route: IVP; Site: right antecubital; ph 14:58 Follow up: Response: Nausea is decreased ko1 13:21 Drug: metroNIDAZOLE IVPB 500 mg Volume: 100 ml; Route: IVPB; Rate: 200 ml/hr; Infused ko1 Over: 30 mins; Site: right antecubital; 13:21 Drug: NS 0.9% IV 1000 ml Route: IV; Rate: 125 ml/hr; Site: right antecubital; ko1 14:29 Drug: Ciprofloxacin IVPB 400 mg Volume: 200 ml; Route: IVPB; Infused Over: 60 mins; ko1 Site: right antecubital; Disposition Summary: 11/18/22 13:01 Hospitalization Ordered Hospitalization Status: Inpatient Admission kb Provider: Peter Clarke [facility] kb Condition: Stable kb Problem: new kb Symptoms: are unchanged kb Bed/Room Type: Standard Room Assignment: 208(11/18/22 14:48) kj1 Diagnosis - Ileus, unspecified kb - Colitis kb - Elevated white blood cell count kb Forms: - Medication Reconciliation Form kb - SBAR form kb Signatures: Dispatcher [employer] EDWY Jayna Huber, MARLENA WRIGHT-Florinda Magallanes RN RN Selene Huber kj1 Shanita Mcfadden RN RN 1 Mesha Tijerina RN RN ko1 Corrections: (The following items were deleted from the chart) 13:25 13:06 Abdomen Pelvis W Con+CT.RAD.BRZ ordered. EDMS EDMS 13:48 13:06 CBC+H.LAB.BRZ ordered. EDMS EDMS 13:48 13:06 COMPREHENSIVE METABOLIC PANEL+C.LAB.BRZ ordered. EDMS EDMS 13:48 13:06 LIPASE+C.LAB.BRZ ordered. EDMS EDMS 14:48 13:01 kb kj1
[2022-11-18] MEDS ORDERED: CIPROFLOXACIN 400mg IV 400 MG/200 ML BAG IV ONE (13:20)
[2022-11-18] MEDS ORDERED: METRONIDAZOLE 500mg IVPB 500 MG/100 ML BAG IV ONE (13:21)
[2022-11-18 13:34] LABS: Blood Morphology Comment NOT SEEN (NOT SEEN); Platelet Estimate ADEQ; Platelets, Giant 1+
[2022-11-18] MEDS ORDERED: ONDANSETRON 4 MG/2 ML VIAL IV PRN (13:50)
--- NOTE | 2022-11-18 13:57 | P.HP ---
Certification for Inpatient With expected LOS: >2 Midnights Practitioner: I am a practitioner with admitting privileges, knowledge of patient current condition, hospital course, and medical plan of care. Services: Services provided to patient in accordance with Admission requirements found in Title 42 Section 412.3 of the Code of Federal Regulations Patient History Date of Service: 11/18/22 Reason for admission: Small bowel obstruction and segmental colitis History of Present Illness: Patient is 47 years of age his problem started last week started becoming constipated to the emergency room and was discharged on a laxative came back again complaining of severe abdominal and back pain in addition to constipation admitted with small bowel obstruction he has a previous history of inguinal hernia repair scan findings below significant medical history IMPRESSION: Fluid distention of the small bowel and proximal large bowel, favored to represent ileus. Mild bowel wall thickening and mucosal hyperenhancement of the descending and sigmoid colon, suggestive of segmental colitis. Dictated By: Cristhian Euceda MD 11/18/22 122 Allergies Penicillins Allergy (Unverified 01/08/18 18:54) Unknown No Known Allergies Allergy (Uncoded 10/15/16 06:29) Unknown - Past Medical/Surgical History Past Medical History: Patient denies medical history -: Inguinal hernia repair - Social History Smoking Status: Current every day smoker Counseled patient to stop smoking for: less than 10 minutes Smoking therapy provided: No Review of Systems 10-point ROS is otherwise unremarkable Gastrointestinal: As per HPI Physical Examination - Vital Signs Temperature: 98.1 F Blood Pressure: 130/95 Pulse: 126 Respirations: 18 Pulse Ox (%): 96 - Physical Exam General: Alert, Moderate distress HEENT: Atraumatic Neck: Supple Cardiovascular: No edema, Normal S1 S2 Gastrointestinal: Hyperactive, Tenderness (Patient has generalized tenderness worse in the suprapubic otherwise abdomen is soft no rebound) Integumentary: No rashes, No breakdown Neurological: Normal speech, Normal strength at 5/5 x4 extr - Studies Laboratory Data (last 24 hrs) 11/18/22 11:20: Sodium 136, Potassium 4.4, BUN 13, Creatinine 1.06, Glucose 126 H, Total Bilirubin 0.9, AST 17, ALT 31, Alkaline Phosphatase 103, Lipase 21 11/18/22 11:20: WBC 13.60 H, Hgb 17.7, Hct 54.6 H, Plt Count 229 11/18/22 10:55: Sodium Cancelled, Potassium Cancelled, BUN Cancelled, Creatinine Cancelled, Glucose Cancelled, Total Bilirubin Cancelled, AST Cancelled, ALT Cancelled, Alkaline Phosphatase Cancelled, Lipase Cancelled 11/18/22 10:55: WBC Cancelled, Hgb Cancelled, Hct Cancelled, Plt Count Cancelled Assessment and Plan - Problems (Diagnosis) (1) Small bowel obstruction Current Visit: Yes Status: Acute Plan: Patient is 47 years of age admitted with small bowel obstruction CT scan findings stated below IMPRESSION: Fluid distention of the small bowel and proximal large bowel, favored to represent ileus. Mild bowel wall thickening and mucosal hyperenhancement of the descending and sigmoid colon, suggestive of segmental colitis. Prior medical history and is a heavy smoker has a history of inguinal hernia repair he takes ibuprofen on a as needed basis no other medications not have a primary care physician Labs pertinent for elevated white count otherwise normal chemistries Admit patients with IV fluids pain relief nasogastric tube consult general surgery - Advance Directives Does patient have a Living Will: No Does patient have a Durable POA for Healthcare: No
[2022-11-18] MEDS: NA CHLORIDE 0.9% 1,000 ML IV SCH (14:00)
[2022-11-18] MEDS: MORPHINE 4 MG/ML SYR IV PRN ×2 (15:00→20:17)
[2022-11-18] MEDS ORDERED: MORPHINE 4 MG/ML SYR ONE (15:10)
[2022-11-18 15:31] VITALS: BMI 30.9
[2022-11-18] MEDS: METRONIDAZOLE 500mg IVPB 500 MG/100 ML BAG IV SCH (16:05)
[2022-11-18] MEDS: CIPROFLOXACIN 400mg IV 400 MG/200 ML BAG IV SCH (20:18)
[2022-11-19] MEDS: METRONIDAZOLE 500mg IVPB 500 MG/100 ML BAG IV SCH ×3 (00:10→18:03)
[2022-11-19] MEDS: NA CHLORIDE 0.9% 1,000 ML IV SCH ×4 (03:01→20:00)
[2022-11-19 03:42] LABS: Absolute Lymphocytes (CBC) 1.3 K/uL (0.7-4.9); Hematocrit 49.5 % (39.6-49.0); Lymphocytes % 16.2 % (15.3-44.8); MCV 90.6 fL (80-100); MPV 9.4 fL (7.6-11.3); RBC Red Blood Cell Count 5.46 M/uL (4.33-5.43)
[2022-11-19 04:00] LABS: Bilirubin Total 0.9 mg/dL (0.2-1.0); Potassium 4.9 mEq/L (3.5-5.1); Protein, Total 6.2 g/dL (6.4-8.2)
[2022-11-19] MEDS: MORPHINE 4 MG/ML SYR IV PRN (06:24)
[2022-11-19] MEDS: CIPROFLOXACIN 400mg IV 400 MG/200 ML BAG IV SCH ×2 (08:48→20:29)
[2022-11-19] MEDS ORDERED: ACETAMINOPHEN 325 MG TABLET PO PRN (10:28)
--- NOTE | 2022-11-19 11:08 | CON ---
Date of Consultation: 11/19/2022 Reason For Consultation: Abdominal pain. History Of Present Illness: The patient is a 47-year-old gentleman, presented to the emergency room yesterday for the second time in the last few days with diffuse abdominal pain, mostly in the lower a bdomen; however, associated nausea and vomiting. The patient had 1 episode of diarrhea. No blood pe r rectum. He has had constipation in the past. Has not had a colonoscopy. No sore throat, runny no se, cough, headaches, or dizziness. No chest pain. No fever or chills. Review of Systems: Otherwise unremarkable. The patient has not lost any weight. Past Medical History: GERD, migraines. Past Surgical History: Inguinal hernia repair. Allergies: NO ALLERGIES. Social History: The patient does smoke and was counseled. Drinks occasionally. Family History: Noncontributory. No colorectal malignancy. Physical Examination: Vital Signs: Stable. He is afebrile. General: He is awake, alert, and oriented x3. Head and Neck: Cranial nerves 2 through 12 are grossly within normal limits. No neck masses. No JV D. Throat clear. Neck is supple. Chest: Clear. Heart: S1 and S2. Abdomen: Soft, nondistended. Positive bowel sounds. Positive left lower quadrant and suprapubic te nderness. No rebound, rigidity, or guarding. Extremity: Adequately perfused. Nontender. Neuro: Nonfocal. Laboratory Data: Shows admission white count of 13.6 with a left shift. Today, it is normal with no left shift. Chemistry reviewed. CT of the abdomen and pelvis reviewed, shows ileus in the small alanis wel with fluid distention and mild wall thickening and mucosal hyperenhancement of the descending and sigmoid colon suggestive of segmental colitis. Assessment: Colitis with ileus. Recommendations: We will begin sips of clear liquids as the patient is passing gas today. Continue IV antibiotics, advance diet slowly. The patient will need to be on antibiotics for at least 10-14 d ays. Cipro and Flagyl should be fine. The patient needs to follow up with GI Service in 4-6 weeks f or a colonoscopy. This was stressed to the patient and the importance of getting it done. We will f ollow this patient while in the hospital. LEE/CATALINO Voice ID: [id number] Report ID: [id number]
[2022-11-20] MEDS: METRONIDAZOLE 500mg IVPB 500 MG/100 ML BAG IV SCH ×2 (01:05→08:13)
[2022-11-20] MEDS: NA CHLORIDE 0.9% 1,000 ML IV SCH (05:33)
--- NOTE | 2022-11-20 06:00 | P.PN ---
Subjective Date of Service: 11/19/22 Subjective: No new changes, No C/O voiced, Improving Patient's chart has been reviewed. Patient is doing better. Patient's colitis has been improved. Patient is ambulating well. Still having some abdominal complaints but overall feels much better. Will go ahead and start him on clear liquid diet at this time. Review of Systems 10-point ROS is otherwise unremarkable Physical Examination - Vital Signs Temperature: 97.8 F Blood Pressure: 110/59 Pulse: 75 Respirations: 15 Pulse Ox (%): 95 - Physical Exam General: Alert, In no apparent distress, Oriented x3 Respiratory: Clear to auscultation bilaterally, Normal air movement Cardiovascular: Regular rate/rhythm, Normal S1 S2, No murmurs Gastrointestinal: Normal bowel sounds, Soft and benign, Non-distended, No rebound, No guarding, Tenderness Musculoskeletal: No clubbing, No swelling, No tenderness Neurological: Sensation intact, Cranial nerves 3-12 intact - Studies Medications List Reviewed: Yes Assessment & Plan - Problems (Diagnosis) (1) Colitis Current Visit: Yes Status: Acute (2) Abdominal pain Current Visit: Yes Status: Acute - Plan -IV hydration -IV antibiotics -outpatient colonoscopy -pain controlled -stool studies -surgery consultation appreciated -CT abdomen pelvis reviewed Discharge Plan: Home Plan to discharge in: Greater than 2 days - Advance Directives Does patient have a Living Will: No Does patient have a Durable POA for Healthcare: No - Code Status/Comfort Care Code Status Assessed: Yes Code Status: Full Code Critical Care: No Time Spent Managing PTS Care (In Minutes): 35
[2022-11-20] MEDS: CIPROFLOXACIN 400mg IV 400 MG/200 ML BAG IV SCH (08:13)
[2022-11-20 08:20] VITALS: BP 128/79; TEMP 98
[2022-11-20 11:33] VITALS: O2SAT 93
--- NOTE | 2022-11-20 11:52 | PN ---
Date of Progress Note: 11/20/2022 Subjective: The patient is awake, alert, tolerating diet, having a bowel movement. No abdominal michel n. No nausea or vomiting. Objective: Vital Signs: Stable, afebrile. Abdomen: Benign. Assessment: Colitis. Recommendations: Cleared from Surgery for discharge. Followup with GI for colonoscopy as an outpati ent in 4 to 6 weeks. /MODL Voice ID: [id number] Report ID: [id number]
--- NOTE | 2022-11-20 14:08 | P.DS ---
Admission Date: 11/18/22 Discharge Date: 11/20/22 Disposition: ROUTINE DISCHARGE Reason for Admission: Small bowel obstruction and segmental colitis Consultations: 1. General Surgery Hospital Course: DIAGNOSES: # Possible Sepsis secondary to Mild Descending/Sigmoid Colitis - resolved # Ileus - resolved HOSPITAL COURSE: Mr. Jean Montes is a pleasant 47 year old male with no reported past medical history who was admitted to the [facility] on 11/18/2022 for abdominal pain. He was admitted to the Medicine service. Upon further evaluation, his CT abdomen/pelvis revealed, "fluid distention of the small bowel and proximal large bowel, favored to represent ileus. Mild bowel wall thickening and mucosal hyperenhancement of the descending and sigmoid colon, suggestive of segmental colitis." He was placed NPO and started on IV antibiotics. General Surgery was consulted and he was evaluated by Dr. Bains. His diet was gradually re- introduced and, over the course of his hospitalization, his symptoms improved significantly. Today, he was able to pass flatus and have a bowel movement. He was able to tolerate a diet. General Surgery has cleared him for discharge with outpatient follow-up. He was counseled extensively that colitis can be an early sign of colon cancer. He states that he has never had a colonoscopy. He was advised to get a colonoscopy in 4-6 weeks. He verbalized understanding and agreed to make this appointment. On 11/20/2022, he was seen on rounds and deemed medically stable for discharge. He was discharged with instructions to schedule follow-up appointments with his PCP, with Gastroenterology (Dr. Garcia), and with General Surgery (Dr. Bains). He was provided prescriptions for ciprofloxacin and metronidazole. He was given the opportunity to ask questions and reported no further questions. Furthermore, all questions were answered to the best of my ability. A copy of this discharge summary will be sent to the above providers to facilitate continuity of care. Today, I personally spent 25 minutes on his case, of which greater than 50% of the time was spent in patient education, counseling, and coordination of care as described above. Vital Signs/Physical Exam: Temp Pulse Resp BP Pulse Ox 98 F 74 16 128/79 93 11/20/22 08:00 11/20/22 08:00 11/20/22 08:00 11/20/22 08:00 11/20/22 08:00 General: Alert, In no apparent distress, Oriented x3 HEENT: Atraumatic, Mucous membr. moist/pink, Sclerae nonicteric Neck: JVD not distended Respiratory: Clear to auscultation bilaterally, Normal air movement Cardiovascular: No edema, Regular rate/rhythm, Normal S1 S2, No gallops, No rubs, No murmurs Gastrointestinal: Normal bowel sounds, Soft and benign, Non-distended, No tenderness, No rebound, No guarding Musculoskeletal: No clubbing Integumentary: No rashes Neurological: Normal speech, Normal affect Laboratory Data at Discharge: WBC 8.10 thou/uL (4.3-10.9) 11/19/22 02:56 Hgb 16.0 g/dL (13.6-17.9) D 11/19/22 02:56 Hct 49.5 % (39.6-49.0) H 11/19/22 02:56 Plt Count 208 thou/uL (152-406) 11/19/22 02:56 Sodium 137 mEq/L (136-145) 11/19/22 02:56 Potassium 4.9 mEq/L (3.5-5.1) 11/19/22 02:56 BUN 12 mg/dL (7-18) 11/19/22 02:56 Creatinine 0.93 mg/dL (0.70-1.30) 11/19/22 02:56 Glucose 107 mg/dL (74-106) H 11/19/22 02:56 Total Bilirubin 0.9 mg/dL (0.2-1.0) 11/19/22 02:56 AST 12 U/L (15-37) L 11/19/22 02:56 ALT 22 U/L (16-61) 11/19/22 02:56 Alkaline Phosphatase 81 U/L (45-117) D 11/19/22 02:56 Lipase 21 U/L (13-75) 11/18/22 11:20 Home Medications: Ciprofloxacin HCl 500 mg PO BID 10 Days #20 tab 11/20/22 metroNIDAZOLE [Metronidazole] 500 mg PO Q8H 10 Days #30 tab 11/20/22 New Medications: Ciprofloxacin HCl 500 mg PO BID 10 Days #20 tab metroNIDAZOLE [Metronidazole] 500 mg PO Q8H 10 Days #30 tab Physician Discharge Instructions: 1. Please call and schedule a follow-up appointment with your PCP in 3-5 days 2. Please call and schedule a follow-up appointment with Gastroenterology (Dr. Garcia) in 5-7 days - Please have him schedule you for a colonoscopy in 4-6 weeks 3. Please call and schedule a follow-up appointment with General Surgery (Dr. Bains) in 5-7 days Diet: Regular Activity: Ad mani Followup: NONE,NONE [Primary Care Provider] - Reji Garcia MD [ASSOCIATE-ACTIVE - CAN ADMIT] - Charly Bains MD [ACTIVE - CAN ADMIT] - Time spent managing pt's care (in minutes): 25
== END 2022-11-20 15:22 | disposition home or self-care (01) | DRG 392 ==
LOC: ER 10:40 → ERHOLD 13:50 → 2ND 14:54
PROVIDERS: ADMIT Internal Medicine Sleep Medicine; ATTEND Internal Medicine
DX: K52.89 Other specified noninfective gastroenteritis and colitis (principal); K56.7 Ileus, unspecified; K21.9 Gastro-esophageal reflux disease without esophagitis; G43.909 Migraine, unspecified, not intractable, without status migrainosus; F17.210 Nicotine dependence, cigarettes, uncomplicated; Z71.6 Tobacco abuse counseling; Z28.310 Unvaccinated for COVID-19
CPT/HCPCS: 36415; 74177; 80053; 83690; 85025; 96361; 96374; 96375; 99285; J0744; J2405; J7030

== ENCOUNTER 2023-09-04 06:16 | Day surgery (SDC) | payer OTHER, SELFPAY ==
--- NOTE | 2023-09-02 14:57 | RAD REPORT ---
EXAM DESCRIPTION: Saúl Sim (2 Views)09/02/2023 2:47 pm CLINICAL HISTORY: Preop for hernia repair COMPARISON: 2022 FINDINGS: The lungs appear clear of acute infiltrate. The heart is normal size IMPRESSION: No acute abnormalities displayed
[2023-09-02 15:55] LABS: Absolute Basophils 0.1 K/uL (0-0.5); Absolute Eosinophils 0.3 K/uL (0-0.5); Absolute Lymphocytes (CBC) 2.2 K/uL (0.7-4.9); Absolute Monocytes 0.8 K/uL (0.1-1.3); Absolute Neutrophil 8.6 K/uL (1.8-8.0); Basophils % 1.2 % (0-1.3); Eosinophils % 2.8 % (0-4.4); Hematocrit 51.4 % (39.6-49.0); MCH 29.9 pg (27.0-35.0); MCHC 33.2 g/dL (32.0-36.0); MCV 90.2 fL (80-100); MPV 10.6 fL (7.6-11.3); Monocytes % 6.6 % (3.3-12.3); Neutrophils % 71.4 % (41.7-73.7); Platelets 219 thou/uL (152-406); RBC Red Blood Cell Count 5.69 M/uL (4.33-5.43); Red Cell Distribution Width 15.1 % (12.1-15.2)
[2023-09-04] MEDS: Ringers Lactate 1,000 ML IV ONE (06:56)
[2023-09-04] MEDS ORDERED: LIDOCAINE 2% MPF 5 ML VIAL ONE ×2 (06:57→07:23)
[2023-09-04] MEDS ORDERED: ONDANSETRON 4 MG/2 ML VIAL ONE ×2 (06:57→07:23)
[2023-09-04] MEDS ORDERED: KETOROLAC 30 MG/ML INJ ONE (06:57)
[2023-09-04] MEDS ORDERED: MIDAZOLAM HCL 2 MG/2 ML INJ ONE ×2 (06:57→07:23)
[2023-09-04] MEDS ORDERED: FENTANYL CITR 100 MCG/2 ML ONE ×3 (06:57→09:14)
[2023-09-04] MEDS ORDERED: ROCURONIUM 50 MG/5 ML VIAL IV ONE ×2 (06:57→07:23)
[2023-09-04] MEDS ORDERED: propofoL 200 MG/20 ML VIAL IV ONE ×2 (06:57→07:23)
[2023-09-04] MEDS ORDERED: dexAMETHasone 10 MG/ML VIAL ONE ×2 (06:57→09:14)
[2023-09-04] MEDS: CEFAZOLIN SODIUM 1 GM/VIAL ONE (07:30)
[2023-09-04] MEDS ORDERED: NS 0.9% VIAL 10 ML ONE ×2 (07:57→07:58)
[2023-09-04] MEDS ORDERED: GLYCOPYRROLATE 0.2 MG/ML SYR ONE (08:18)
[2023-09-04] MEDS ORDERED: NEOSTIGMINE 1 MG/ML -10 ML VIAL ONE (08:18)
--- NOTE | 2023-09-04 08:32 | P.BOP ---
Preoperative diagnosis: tender left inguinal hernia and umbilical hernia Postoperative diagnosis: same Primary procedure: 1. Laparoscopic repair tender left incarcerated inguinal hernia with mesh Secondary procedure: 2. Laparoscopic repair of tender reducible umbilical hernia Estimated blood loss: <10cc Specimen: umbilical hernia sac Findings: as above Anesthesia: General Complications: None Implants: 3D mesh left Transferred to: Recovery Room Condition: Good
[2023-09-04] MEDS: HYDROMORPHONE HCL 1 MG/ML INJ ONE (08:55)
[2023-09-04] MEDS: CODEINE 30MG/APAP 300MG TAB ONE (09:45)
[2023-09-04 11:01] VITALS: BP 133/77; TEMP 96.1; O2SAT 94
--- NOTE | 2023-09-04 20:54 | OP ---
Date of Procedure: 09/04/2023 Surgeon: Charanjit Ruiz MD Preoperative Diagnoses: Tender left inguinal hernia and umbilical hernia. Postoperative Diagnoses: Tender left inguinal hernia and umbilical hernia. Procedures: 1.Laparoscopic repair of tender left incarcerated inguinal hernia with mesh. 2.Laparoscopic repair of tender reducible umbilical hernia. Estimated Blood Loss: Less than 10 cc. Specimen: Umbilical hernia sac. Anesthesia: General plus local. Complications: None. Implants: 3D mesh in the left inguinal region. Findings: Patient has both the hernias present. Indication: This is the case of a 48-year-old patient with 2 problems; left inguinal hernia and also umbilical hernia, both of them tender. The umbilical hernia is still able to reduce, that also is b ecoming more difficult. The benefits, alternatives, and risks of laparoscopic repair of left inguina l hernia with possible mesh and also repair of umbilical hernia fully explained, which include, but n ot limited to, infection, bleeding, damage to adjacent structures, anesthesia complication, chronic p ain, chronic numbness, [place], and even . He also understands this may not relieve any symptoms. H e might need more than one surgical intervention. He also understands the risks of damage to adjacen t structures. Specifically about the mesh, we proposed most likely to use of mesh in the left inguin al region. So pros and cons of mesh placement were discussed with the patient and all the questions were answered to his satisfaction. He signed a consent. Description Of Procedure: The area of concern was marked by me and the patient in the holding room. The patient was brought to the operating room, placed in supine position. Anesthesia was done witho ut complication. Abdominal area was prepped and draped in the usual sterile fashion. Local anesthes ia was applied followed by sharp incision of the skin in the periumbilical region. Incision was liz ied down till we found the anterior rectus sheath on the left side. It was opened and the muscle ret racted laterally to expose the posterior rectus sheath. The extraperitoneal space was gently develop ed with the help of blunt dissection and then a Spacemaker balloon tip trocar was placed in that area and directed toward the pubic symphysis. A laparoscope was placed in and the balloon was inflated u nder direct visualization to create the extraperitoneal space. After that, the balloon was deflated and then after that, we inflated the area. I then put the camera back again under direct visualizati on. We put a 5 mm trocar just above the pubic symphysis and another one residential between the first an d the second one. After that, the preperitoneal space was further developed by exposing the inferior epigastric vessels and keeping them anterior. Wesley's ligament was dissected laterally to the junc tion with the iliac veins. The dissection continued inferiorly to the iliopubic tract avoiding damag e to the femoral branch of the genitofemoral nerve and lateral femoral cutaneous nerve. The cord str uctures were carefully skeletonized. The hernia sac was identified and reduced by gentle traction in to the peritoneal cavity. At that moment, I introduced a medium mesh on the left side, 3D mesh throu gh the trocar site and aligned in place to cover direct, indirect spaces. The mesh was secured in pl bere lateral and superior to the iliopubic tract and inferior and medial to the Wesley's ligament with the help of SorbaFix fixation device. After ensuring hemostasis, we proceeded then to stop the insu fflation and allowed the air to escape and removed the trocars under direct visualization and closed the anterior rectus sheath with #1 Vicryl. At that moment, we directed our attention to the umbilica l region. We extended incision a little bit because it is little bit higher than our previous incisi on, but we were able to identify the hernia ring, the umbilical skin, removed the hernia sa c, cleaned the fascial edges and in this case, we were able to approximate the hernia without any buck or tension with a [id number] fashion #1 Prolene. The patient tolerated the procedure well. Bot h areas were closed with 3-0 chromic and the skin was approximated with lauren. Sponge counts and i nstrument counts correct. Patient tolerated the procedure well. Patient sent to Recovery in stable condition. At the end of the case, testicles were within the scrotum. HM/MODL Voice ID: [id number] Report ID: [id number]
--- NOTE | 2023-09-04 21:00 | DS ---
Date of Discharge: 09/04/2023 Diagnosis: Tender left inguinal and umbilical hernia. Procedures: Laparoscopic repair of left inguinal hernia with mesh and repair of the umbilical hernia . Disposition: Home. Condition: Stable. Activity: As tolerated. No heavy lifting. Plan: Follow up in my office in 1 week. Call for an appointment at [phone]. Keep area dry for 48 hours, then may shower. For medications, see orders. ELIDA/CATALINO Voice ID: [id number] Report ID: [id number]
--- NOTE | 2023-09-06 11:59 | EKG ---
Test Date: 2023-09-02 Test Time: 14:40:27 Ventilating Equipment Installer: PREO MEASUREMENT RESULTS: Intervals: Rate: 102 RI: 192 QRSD: 84 QT: 322 QTc: 419 [place]: P: 55 RI: 192 QRS: 48 T: 26 INTERPRETIVE STATEMENTS: Sinus tachycardia Otherwise normal ECG Compared to ECG 07/12/2022 19:15:34 Sinus rhythm no longer present Myocardial infarct finding no longer present Electronically Signed On 09-06-23 11:54:56 CDT by Juan Francisco Guerrero
== END 2023-09-04 10:30 | disposition home or self-care (01) ==
LOC: OR 06:16
PROVIDERS: ATTEND Surgery
PROC: 0WQF4ZZ Repair Abdominal Wall, Percutaneous Endoscopic Approach (ICD-10-PCS; principal; 2023-09-04 07:30)
PROC: 0YU64JZ Supplement Left Inguinal Region with Synthetic Substitute, Percutaneous Endoscopic Approach (ICD-10-PCS; 2023-09-04 07:30)
DX: K42.9 Umbilical hernia without obstruction or gangrene (principal); K40.90 Unilateral inguinal hernia, without obstruction or gangrene, not specified as recurrent; F17.210 Nicotine dependence, cigarettes, uncomplicated; K21.9 Gastro-esophageal reflux disease without esophagitis
CPT/HCPCS: 93005; 85025; 80048; 36415; 88302; 71046; 49591; 49650; A4216 ×2; J2704; J2710; J2001; J2250; J3010; J1100; J1170; J2405; J7120; J0690

== ENCOUNTER 2024-05-10 04:20 | Observation (INO) | payer OTHER ==
[2024-05-10] MEDS ORDERED: ALBUTEROL 2.5 MG/3 ML NEB SOL ONE ×3 (04:32→06:28)
[2024-05-10] MEDS ORDERED: IPRATROPIUM BROM 0.5MG/2.5ML ONE ×2 (04:32→06:28)
[2024-05-10] MEDS ORDERED: CEFTRIAXONE 1000 MG/VIAL ONE (04:57)
[2024-05-10] MEDS ORDERED: METHYLPREDNISOLONE 125 MG INJ ONE (04:57)
[2024-05-10] MEDS ORDERED: ACETAMINOPHEN 500 MG TAB ONE (04:58)
[2024-05-10] MEDS ORDERED: NA CHLORIDE 0.9% 1,000 ML ONE (04:58)
[2024-05-10] MEDS ORDERED: NA CHLORIDE 0.9% 50 ML ONE (04:58)
[2024-05-10 05:00] LABS: Absolute Basophils 0.1 K/uL (0-0.5); Absolute Eosinophils 0.2 K/uL (0-0.5); Absolute Lymphocytes (CBC) 0.3 K/uL (0.7-4.9); Absolute Monocytes 0.6 K/uL (0.1-1.3); Absolute Neutrophil 7.5 K/uL (1.8-8.0); Eosinophils % 2.1 % (0-4.4); Hematocrit 50.4 % (39.6-49.0); Hemoglobin 16.5 g/dL (13.6-17.9); Lymphocytes % 3.8 % (15.3-44.8); MCHC 32.8 g/dL (32.0-36.0); MCV 91.6 fL (80-100); MPV 9.1 fL (7.6-11.3); Monocytes % 7.2 % (3.3-12.3); Neutrophils % 85.9 % (41.7-73.7); Nucleated Red Blood Cells % 0.1 % (0-0); Platelets 152 thou/uL (152-406); Red Cell Distribution Width 14.9 % (12.1-15.2)
[2024-05-10 05:12] LABS: PT Prothrombin Time 11.8 SECONDS (9.4-12.5); PTT, Activated Partial Thromb 30.5 SECONDS (24.3-36.9); Protime INR 1.06
[2024-05-10 05:15] LABS: SARS-CoV-2 Antigen CONTROL BLUE LINE VIS/BG OK; SARS-CoV-2 Antigen Rapid Res Negative (Negative)
[2024-05-10 05:18] LABS: Albumin 3.4 g/dL (3.4-5.0); Albumin/Globulin Ratio 0.9 (1.1-1.8); Anion Gap 7.2 mEq/L (5.0-15.0); Bilirubin Total 0.4 mg/dL (0.2-1.0); Globulin 3.7 g/dL (2.3-3.5); Potassium 4.2 mEq/L (3.5-5.1); Protein, Total 7.1 g/dL (6.4-8.2)
[2024-05-10 05:25] LABS: Blood Morphology Comment NOT SEEN (NOT SEEN); Platelet Estimate ADEQ; White Blood Cell Scan OK (OK)
--- NOTE | 2024-05-10 06:34 | EDPHYS ---
Physician Documentation [facility] Name: Jean Montes III Age: 49 yrs Sex: Male : 1975 Arrival Date: 05/10/2024 Time: 04:20 Bed 4 Private MD: ED Physician Kailash Kinney HPI: 05/10 04:37 This 49 yrs old Male presents to ER via Unassigned with complaints of ec2 Breathing Difficulty, Fever, Cough, Congestion, Weakness. 04:37 Patient arrives today for several days of URI signs and symptoms. Patient reports he is ec2 having some nonproductive cough as well as malaise, subjective fevers and chills. Patient reports history of pack per day smoking, no underlying medical problems however does not regularly seek medical care.. Historical: - Allergies: 04:45 No Known Allergies; vc1 - PMHx: 04:45 GERD; Migraines; vc1 - PSHx: 04:45 inguinal hernia repair; vc1 - Immunization history:: Client reports having NOT received the Covid vaccine. Flu vaccine is not up to date. Patient has never been vaccinated. - Infectious Disease History:: Denies. - Social history:: Smoking status: Patient reports the use of cigarette tobacco products, smokes one pack cigarettes per day. ROS: 04:37 Constitutional: as per hpi ec2 Exam: 04:37 Constitutional: GEN: NAD Head: atraumatic Eyes: EOMI Ears: External ears are ec2 normal. CV: Tachycardia LUNGS: Diminished lung sounds appreciated, no rales or rhonchi noted. ABD: non-distended SKIN: no evidence of rashes MSK: no evidence of trauma Vital Signs: 04:41 BP 142 / 111; Pulse 121; Resp 31; Temp 100; Pulse Ox 88% on R/A; Weight 111.13 kg; vc1 Height 6 ft. 1 in. ; Pain 0/10; 04:56 Pulse Ox 91% on 2 lpm NC; vc1 05:00 BP 109 / 56; Pulse 114; Resp 18; Pulse Ox 91% on 2 lpm NC; al5 06:00 BP 113 / 72; Pulse 109; Resp 18; Pulse Ox 92% on 2 lpm NC; al5 07:28 BP 111 / 69; Pulse 100; Resp 20; Temp 98.2; Pulse Ox 92% on 2 lpm NC; ph 04:41 Body Mass Index 32.32 (111.13 kg, 185.42 cm) vc1 04:41 Pain Scale: Adult vc1 MDM: 04:31 Medical Screening Exam initiated ec2 04:37 Data reviewed: vital signs, nurses notes. ED course: Patient arrives today for ec2 shortness of breath with infectious symptoms. Will obtain a septic workup, empirically treat with steroids, ceftriaxone as well as crystalloid. Differential diagnosis include processes such as pneumonia, viral infection, anemia,. 04:38 ED course: EKG obtained, independently reviewed and interpreted by me, shows sinus ec2 tachycardia, rate of 120, no acute ST segment elevations, significant motion artifact noted.. 05:42 ED course: CBC is unrevealing. Metabolic profile reassuring. Lactic acid within normal ec2 ranges. Flu and COVID testing negative.. 06:33 ED course: On reassessment patient with improvement in aeration throughout all lung ec2 garcia, improvement in respiratory status, did give another DuoNeb due to subjective shortness of breath. Will admit for COPD exacerbation, sepsis. Discussed with hospitalist, pending admission.. 12 04:32 Order name: Blood Culture Adult (2) ec2 05/10 04:32 Order name: CBC with Diff; Complete Time: 05:42 ec2 05/10 04:32 Order name: CMP; Complete Time: 05:42 ec2 08 04:32 Order name: Lactate w/ 2H reflex if indic.; Complete Time: 05:42 ec2 08 04:32 Order name: Protime (+inr); Complete Time: 05:42 ec2 05/10 04:32 Order name: Ptt, Activated; Complete Time: 05:42 ec2 05/10 04:32 Order name: Influenza Screen (a \T\ B); Complete Time: 05:42 ec2 05/10 04:32 Order name: SARS RAPID; Complete Time: 05:42 ec2 05/10 05:07 Order name: Glucose, Ancillary Testing; Complete Time: 05:42 EDMS 05/10 05:25 Order name: CBC Smear Scan; Complete Time: 05:42 EDMS 05/10 07:37 Order name: Basic Metabolic Panel EDMS 05/10 07:37 Order name: Basic Metabolic Panel EDMS 05/10 07:37 Order name: Basic Metabolic Panel EDMS 05/10 07:37 Order name: CBC with Automated Diff EDMS 05/10 07:37 Order name: CBC with Automated Diff EDMS 05/10 07:37 Order name: CBC with Automated Diff EDMS 05/10 04:32 Order name: Chest Single View XRAY ec2 05/10 04:32 Order name: Accucheck; Complete Time: 04:56 ec2 05/10 04:32 Order name: Cardiac monitoring; Complete Time: 04:51 ec2 05/10 04:32 Order name: EKG - Nurse/Tech; Complete Time: 04:51 ec2 05/10 04:32 Order name: IV Saline Lock - Large Bore; Complete Time: 04:51 ec2 05/10 04:32 Order name: Labs collected and sent; Complete Time: 04:51 ec2 05/10 04:32 Order name: O2 Per Protocol; Complete Time: 04:51 ec2 05/10 04:32 Order name: O2 Sat Monitoring; Complete Time: 04:51 ec2 05/10 04:32 Order name: Vital Signs; Complete Time: 04:51 ec2 Administered Medications: 04:50 Drug: DuoNeb Nebulize (3:1) (2.5 mg - 0.5 mg) 3 ml Nebulizer once Route: Nebulizer; vc1 07:01 Follow up: Response: No adverse reaction; Wheezing unchanged al5 05:11 Drug: Acetaminophen PO 1000 mg PO once Route: PO; al5 06:16 Follow up: Response: No adverse reaction; Temperature is unchanged al5 05:11 Drug: MethylPrednisoLONE IVP 125 mg IVP once Route: IVP; Site: left antecubital; al5 06:16 Follow up: Response: No adverse reaction al5 05:11 Drug: NS 0.9% IV 1000 ml IV at 1 bolus Per protocol; to be given as a bolus over 60 al5 minutes Route: IV; Rate: 1 bolus; Site: left antecubital; 06:17 Follow up: Response: No adverse reaction; IV Status: Completed infusion al5 05:12 Drug: Rocephin IV 1 grams IV at bolus once; Given slow IV push per pharmacy al5 instructions Route: IV; Rate: bolus; Site: left antecubital; 06:16 Follow up: Response: No adverse reaction; IV Status: Completed infusion; IV Intake: [id number] 06:31 Drug: DuoNeb Nebulize (3:1) (2.5 mg - 0.5 mg) 3 ml Nebulizer once Route: Nebulizer; al5 07:01 Follow up: Response: No adverse reaction; Wheezing diminished al5 07:23 Drug: Nicoderm CQ Transdermal Patch 21 mg/24 hr 1 patches Transdermal once Route: ph Transdermal; Site: affected area; 07:28 Follow up: Response: No adverse reaction ph Disposition: 06:33 Critical Care:. ec2 Disposition Summary: 05/10/24 06:34 Hospitalization Ordered Notes: Hospitalization Status: Inpatient Admission ec2 Location: Telemetry/MedSurg (Inpatient) ec2 Condition: Stable ec2 Problem: new ec2 Symptoms: have improved ec2 Bed/Room Type: Standard ec2 Provider: Gary Cano(05/10/24 06:36) ec2 Room Assignment: 219(05/10/24 07:05) Diagnosis - COPD/ Chronic obstructive pulmonary disease with (acute) exacerbation ec2 - Sepsis, unspecified organism ec2 Forms: - Medication Reconciliation Form ec2 - SBAR form ec2 - Leadership Thank You Letter ec2 Critical care time excluding procedures: 06:33 Critical care time: Bedside Care: 30 minutes, Consultation: 5 minutes. Total time: 35 ec2 minutes Signatures: Dispatcher [employer] Ileana Cadena RN RN iw Chuy Maloney, HEAD GRINDER-C HEAD GRINDER-Cla1 Florinda Osborn RN RN ph Litzy Christopher RN RN vc1 Kailash Kinney MD MD ec2 Rubi Gonzalez RN RN al5 Corrections: (The following items were deleted from the chart) 04:33 04:33 BLOOD CULTURE*+BA.LAB.BRZ ordered. EDMS EDMS 04:33 04:33 CBC+H.LAB.BRZ ordered. EDMS EDMS 04:33 04:33 COMPREHENSIVE METABOLIC PANEL+C.LAB.BRZ ordered. EDMS EDMS 04:33 04:33 LACTATE+C.LAB.BRZ ordered. EDMS EDMS 04:33 04:33 PROTIME (+INR)+COAG.LAB.BRZ ordered. EDMS EDMS 04:33 04:33 PTT, ACTIVATED+COAG.LAB.BRZ ordered. EDMS EDMS 04:33 04:33 Influenza Screen (A \T\ B)+BA.LAB.BRZ ordered. EDMS EDMS 04:33 04:33 SARS-COV-2 Antigen Rapid+I.LAB.BRZ ordered. EDMS EDMS 04:33 04:33 Chest Single View+RAD.RAD.BRZ ordered. EDMS EDMS 06:36 06:34 Meseret Richardson ec2 ec2 07:05 06:34 ec2 iw
--- NOTE | 2024-05-10 06:34 | ER ---
Nurse's Notes [facility] Name: Jean Montes III Age: 49 yrs Sex: Male : 1975 Arrival Date: 05/10/2024 Time: 04:20 Bed 4 Private MD: Diagnosis: COPD/ Chronic obstructive pulmonary disease with (acute) exacerbation;Sepsis, unspecified organism Presentation: 05/10 04:41 Chief complaint: Patient states: SOB that started yesterday, with fever, weakness, and vc1 cough. Coronavirus screen: Client denies travel out of the [place] in the last 14 days. chills, congestion, cough unrelated to allergies, difficulty breathing, shortness of breath, Client presents with at least one sign or symptom that may indicate coronavirus-19. Ebola Screen: Patient negative for fever greater than or equal to 101.5 degrees Fahrenheit, and additional compatible Ebola Virus Disease symptoms Patient denies exposure to infectious person. Patient denies travel to an Ebola-affected area in the 21 days before illness onset. No symptoms or risks identified at this time. Initial Sepsis Screen: Does the patient meet any 2 criteria? RR > 20 per min. HR > 90 bpm. Yes Does the patient have a suspected source of infection? No. Patient's initial sepsis screen is negative. Risk Assessment: Do you want to hurt yourself or someone else? Patient reports no desire to harm self or others. Onset of symptoms was May 14, 2024. Care prior to arrival: None. Activity prior to arrival: None. Mechanism of Injury: No Mechanism of Injury. Transition of care: patient was not received from another setting of care. 04:41 Method Of Arrival: Wheelchair vc1 04:41 Acuity: ANA 2 vc1 Triage Assessment: 04:47 General: Appears distressed, ill, well developed, well nourished, Behavior is calm, vc1 cooperative, appropriate for age. Pain: Denies pain. EENT: Reports nasal congestion. Neuro: Level of Consciousness is awake, alert, obeys commands, Oriented to person, place, time, situation, Appropriate for age. Cardiovascular: Reports shortness of breath, Capillary refill < 3 seconds Patient's skin is warm and dry. Rhythm is sinus tachycardia. Respiratory: Reports shortness of breath cough that is labored breathing Onset: The symptoms/episode began/occurred yesterday, the patient has severe shortness of breath. GI: No deficits noted. No signs and/or symptoms were reported involving the gastrointestinal system. : No deficits noted. No signs and/or symptoms were reported regarding the genitourinary system. Derm: Skin is intact, is healthy with good turgor, Skin is dry, Skin is normal, Skin temperature is warm. Musculoskeletal: Circulation, motion, and sensation intact. Range of motion: intact in all extremities. Historical: - Allergies: 04:45 No Known Allergies; vc1 - PMHx: 04:45 GERD; Migraines; vc1 - PSHx: 04:45 inguinal hernia repair; vc1 - Immunization history:: Client reports having NOT received the Covid vaccine. Flu vaccine is not up to date. Patient has never been vaccinated. - Infectious Disease History:: Denies. - Social history:: Smoking status: Patient reports the use of cigarette tobacco products, smokes one pack cigarettes per day. Screenin:46 [facility] ED Fall Risk Assessment (Adult) History of falling in the last 3 months, vc1 including since admission No falls in past 3 months (0 pts) Confusion or Disorientation No (0 pts) Intoxicated or Sedated No (0 pts) Impaired Gait No (0 pts) Mobility Assist Device Used No (0 pt) Altered Elimination No (0 pt) Score/Fall Risk Level 0 - 2 = Low Risk Oriented to surroundings, Maintained a safe environment, Educated pt \T\ family on fall prevention, incl call for assistance when getting out of bed. Abuse screen: Denies threats or abuse. Nutritional screening: No deficits noted. Tuberculosis screening: No symptoms or risk factors identified. Assessment: 04:52 General: Appears in no apparent distress. Behavior is calm, cooperative. Pain: Denies al5 pain. Neuro: Level of Consciousness is awake, alert, obeys commands, Oriented to person, place, time, situation. Cardiovascular: Capillary refill < 3 seconds Patient's skin is warm and dry. Cardiovascular: Rhythm is sinus tachycardia. Respiratory: Reports shortness of breath. Respiratory: Airway is patent Respiratory effort is even, unlabored, Respiratory pattern is regular, symmetrical, slight wheezing in upper garcia bilaterally, diminished lung sounds in lower garcia bilaterally. GI: No signs and/or symptoms were reported involving the gastrointestinal system. : No signs and/or symptoms were reported regarding the genitourinary system. EENT: Reports cough, congestion, fever. Derm: Skin is intact, is healthy with good turgor, Skin is pink, warm \T\ dry. normal. Musculoskeletal: No signs and/or symptoms reported regarding the musculoskeletal system. 05:38 Reassessment: Patient appears in no apparent distress at this time. No changes from al5 previously documented assessment. Patient and/or family updated on plan of care and expected duration. Pain level reassessed. Patient is alert, oriented x 3, equal unlabored respirations, skin warm/dry/pink. 06:22 Reassessment: Patient appears in no apparent distress at this time. Patient and/or al5 family updated on plan of care and expected duration. Pain level reassessed. Patient is alert, oriented x 3, equal unlabored respirations, skin warm/dry/pink. Reassessment: slight wheezing noted in upper lung garcia bilaterally, lower lung garcia are more prominent to auscultate and sound clear. requested another breathing treatment for patient from doctor, awaiting orders. 07:27 Reassessment: Patient appears in no apparent distress at this time. Patient and/or ph family updated on plan of care and expected duration. Pain level reassessed. Patient is alert, oriented x 3, equal unlabored respirations, skin warm/dry/pink. Report faxed to 2nd floor. Vital Signs: 04:41 BP 142 / 111; Pulse 121; Resp 31; Temp 100; Pulse Ox 88% on R/A; Weight 111.13 kg; vc1 Height 6 ft. 1 in. ; Pain 0/10; 04:56 Pulse Ox 91% on 2 lpm NC; vc1 05:00 BP 109 / 56; Pulse 114; Resp 18; Pulse Ox 91% on 2 lpm NC; al5 06:00 BP 113 / 72; Pulse 109; Resp 18; Pulse Ox 92% on 2 lpm NC; al5 07:28 BP 111 / 69; Pulse 100; Resp 20; Temp 98.2; Pulse Ox 92% on 2 lpm NC; ph 04:41 Body Mass Index 32.32 (111.13 kg, 185.42 cm) vc1 04:41 Pain Scale: Adult vc1 ED Course: 04:20 First set of blood cultures drawn by me. hw 04:21 Oxygen administration via nasal cannula \T\ 2L/min. vc1 04:26 Patient arrived in ED. gm2 04:27 Kailash Kinney MD is Attending Physician. ec2 04:30 Initial Neb Treatment Given as ordered. vc1 04:35 Second set of blood cultures drawn by me. hw 04:45 Triage completed. vc1 04:46 Arm band placed on right wrist. vc1 04:46 Patient has correct armband on for positive identification. Placed in gown. Bed in low vc1 position. Call light in reach. Provided Education on: call light. manufactured buildings repairer on. Pulse ox on. NIBP on. 04:50 Inserted saline lock: 20 gauge in left antecubital area, using aseptic technique. Blood hw collected. Flushed with 10 mL NS. 04:51 EKG done, by ED staff. hw 04:52 Rubi Gonzalez, GAYLE is Primary Nurse. al5 04:54 No provider procedures requiring assistance completed. al5 04:57 SARS RAPID Sent. hw 04:58 Influenza Screen (a \T\ B) Sent. hw 04:58 Blood Culture Adult (2) Sent. hw 04:58 CBC with Diff Sent. hw 04:58 Lactate w/ 2H reflex if indic. Sent. hw 04:58 Protime (+inr) Sent. hw 04:58 Ptt, Activated Sent. hw 05:21 Chest Single View XRAY In Process Unspecified. EDMS 06:34 Meseret Richardson is Hospitalizing Provider. ec2 06:36 Gary Cano MD is Hospitalizing Provider. ec2 07:28 Patient admitted, IV remains in place. ph Administered Medications: 04:50 Drug: DuoNeb Nebulize (3:1) (2.5 mg - 0.5 mg) 3 ml Nebulizer once Route: Nebulizer; vc1 07:01 Follow up: Response: No adverse reaction; Wheezing unchanged al5 05:11 Drug: Acetaminophen PO 1000 mg PO once Route: PO; al5 06:16 Follow up: Response: No adverse reaction; Temperature is unchanged al5 05:11 Drug: MethylPrednisoLONE IVP 125 mg IVP once Route: IVP; Site: left antecubital; al5 06:16 Follow up: Response: No adverse reaction al5 05:11 Drug: NS 0.9% IV 1000 ml IV at 1 bolus Per protocol; to be given as a bolus over 60 al5 minutes Route: IV; Rate: 1 bolus; Site: left antecubital; 06:17 Follow up: Response: No adverse reaction; IV Status: Completed infusion al5 05:12 Drug: Rocephin IV 1 grams IV at bolus once; Given slow IV push per pharmacy al5 instructions Route: IV; Rate: bolus; Site: left antecubital; 06:16 Follow up: Response: No adverse reaction; IV Status: Completed infusion; IV Intake: [id number] 06:31 Drug: DuoNeb Nebulize (3:1) (2.5 mg - 0.5 mg) 3 ml Nebulizer once Route: Nebulizer; al5 07:01 Follow up: Response: No adverse reaction; Wheezing diminished al5 07:23 Drug: Nicoderm CQ Transdermal Patch 21 mg/24 hr 1 patches Transdermal once Route: ph Transdermal; Site: affected area; 07:28 Follow up: Response: No adverse reaction ph Medication: 04:47 VIS not applicable for this client. vc1 Intake: 06:16 IV: 50ml; Total: 50ml. al5 Outcome: 06:34 Decision to Hospitalize by Provider. ec2 08:24 Patient left the ED. kc6 Signatures: Dispatcher [employer] Florinda Brown RN RN ph Litzy Christopher RN RN vc1 Lizbeth Dietrich RN RN kc6 Kailash Kinney MD MD ec2 Hannah Lauren Amanda, RN RN al5 Zainab Wang Corrections: (The following items were deleted from the chart) 06:22 04:52 Respiratory: Airway is patent Respiratory effort is even, unlabored, Respiratory al5 pattern is regular, symmetrical, clear in upper garcia bilaterally, diminished lung sounds in lower garcia bilaterally. al5 06:24 06:22 Reassessment: slight wheezing noted in upper lung garcia bilaterally, lower lung al5 garcia are more prominent to auscultate and sound clear al5
--- NOTE | 2024-05-10 06:49 | RAD REPORT ---
EXAM DESCRIPTION: Chest Single View CLINICAL HISTORY: DYSPNEA COMPARISON: Chest x-ray 09/02/2023 TECHNIQUE: Single AP view of the chest. FINDINGS: Lung volumes adequate. Cardiac silhouette is normal in size. No pneumothorax. No large pleural effusion. No focal consolidation. No acute bony finding. IMPRESSION: No evidence of acute cardiopulmonary disease. Electronically signed by: Josseline Rosenthal MD 05/10/2024 06:45 AM [facility] Z9 Due to temporary technical issues with the [employer]ACS[employer] reporting system, reports are being stacy d by the in-house radiologist without review as a courtesy to ensure prompt reporting the interpreting radiologist is fully responsible for the content of the report. Transcribed Date/Time: 05/10/2024 6:49 AM
--- NOTE | 2024-05-10 07:06 | P.HP ---
Certification for Inpatient Patient admitted to: Observation With expected LOS: <2 Midnights Patient will require the following post-hospital care: None Practitioner: I am a practitioner with admitting privileges, knowledge of patient current condition, hospital course, and medical plan of care. Services: Services provided to patient in accordance with Admission requirements found in Title 42 Section 412.3 of the Code of Federal Regulations Patient History Date of Service: 05/10/24 Reason for admission: COPD exacerbation History of Present Illness: 49-year-old otherwise healthy male with history of tobacco use presents to the emergency department with chief complaint of shortness of breath. He reports has been having symptoms since Tuesday 05/08 and worsened over the last 2 days. He smokes about a pack a day, has never been diagnosed with COPD or asthma. He was noted to have expiratory wheezing on exam by ED staff. Labs were significant for blood cell count of 8.7 hemoglobin 16.5 hematocrit 50.4 lactic acid 1.5 chest x-ray negative for acute findings. 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[employer] - Social History Smoking Status: Current every day smoker Counseled patient to stop smoking for: less than 10 minutes Smoking therapy provided: Yes Patient receptive to therapy: Yes Alcohol use: No CD- Drugs: No Caffeine use: Yes Place of Residence: Home Review of Systems 10-point ROS is otherwise unremarkable Respiratory: Shortness of Breath, SOB with Excertion, Wheezing Physical Examination - Physical Exam General: Alert, In no apparent distress, Oriented x3 HEENT: Atraumatic, PERRLA, EOMI Neck: Supple, 2+ carotid pulse no bruit, No LAD Respiratory: Diminished, Expiratory wheezes Cardiovascular: Regular rate/rhythm, Normal S1 S2 Gastrointestinal: Normal bowel sounds Musculoskeletal: No tenderness Integumentary: No rashes Neurological: Normal speech, Normal strength at 5/5 x4 extr, Normal tone, Normal affect - Studies Laboratory Data (last 24 hrs) 05/10/24 05/10/24 05/10/24 04:35 04:35 04:35 WBC 8.70 Hgb 16.5 Hct 50.4 H Plt Count 152 PT 11.8 INR 1.06 APTT 30.5 Sodium 139 Potassium 4.2 BUN 9 Creatinine 1.17 Glucose 100 Total Bilirubin 0.4 AST 15 ALT 26 Alkaline Phosphatase 89 Microbiology Data (last 24 hrs): 05/10/24 04:35 Nasopharnyx Influenza Type A Antigen Screen - Final 05/10/24 04:35 Nasopharnyx Influenza Type B Antigen Screen - Final Assessment and Plan - Plan Assessment: Dyspnea, tobacco use disorder suspect new onset COPD with exacerbation Plan: Dyspnea, tobacco use disorder suspect new onset COPD with exacerbation Pulm consult Chest x-ray negative for acute findings Counseled on need for tobacco cessation continue steroids, neb treatments, inhalers Provided with NicoDerm patch Patient also reports taking NSAIDs daily-discussed that this is not safe for long-term and to use acetaminophen when possible DVT PPX:Lovenox Code status:Full Discharge Plan: Home Plan to discharge in: 24 Hours - Advance Directives Does patient have a Living Will: No Does patient have a Durable POA for Healthcare: No - Code Status/Comfort Care Code Status Assessed: Yes (Full code) Critical Care: No Time Spent Managing Pts Care (In Minutes): 51
[2024-05-10] MEDS ORDERED: NICOTINE 21 MG/PAT TD ONE (07:10)
[2024-05-10] MEDS ORDERED: IPRATROPIUM BROM 0.5MG/2.5ML NEB PRN (07:35)
[2024-05-10] MEDS ORDERED: ALBUTEROL 2.5 MG/3 ML NEB SOL NEB PRN (07:35)
[2024-05-10 09:07] VITALS: BMI 32.3
[2024-05-10] MEDS: ENOXAPARIN 40 MG/0.4 ML SQ SCH (09:36)
[2024-05-10] MEDS: predniSONE 20 MG TAB PO SCH (09:37)
[2024-05-10] MEDS: DULERA 200/5 (MOMETASONE/FORMOTEROL) INHALER IH SCH (09:50)
--- NOTE | 2024-05-10 10:14 | P.CNS ---
Date of Consult: 05/10/24 Reason for Consult: COPD exacerbation Chief Complaint: COPD exacerbation History of Present Illness: Patient is 49 years of age 1 pack a day smoker has been sick for about 2 days fever cough shortness of breath became worse ended up here in the hospital prior history of obstructive airways disease denies any previous history of COPD no prior medical history of significant coughing spells labs all reviewed unremarkable hemoglobin is normal Allergies No Known Allergies Allergy (Verified 09/02/23 14:25) Home Medications: NK [No Home Meds] 05/10/24 - Past Medical/Surgical History -: None -: Inguinal hernia repair 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 Smoking Status: Current every day smoker Alcohol use: No CD- Drugs: No Caffeine use: Yes Place of Residence: Home Review of Systems 10-point ROS is otherwise unremarkable General: Weakness Respiratory: Cough, Shortness of Breath Physical Examination Temp Pulse Resp BP Pulse Ox 97.8 F 100 H 18 121/60 90 L 05/10/24 09:00 05/10/24 09:00 05/10/24 09:00 05/10/24 09:00 05/10/24 09:00 General: Alert, Oriented x3, Mild distress Respiratory: Clear to auscultation bilaterally, Diminished Cardiovascular: No edema, Normal S1 S2 Gastrointestinal: Normal bowel sounds, Soft and benign Musculoskeletal: No clubbing, No swelling Laboratory Data (last 24 hrs) 05/10/24 05/10/24 05/10/24 04:35 04:35 04:35 WBC 8.70 Hgb 16.5 Hct 50.4 H Plt Count 152 PT 11.8 INR 1.06 APTT 30.5 Sodium 139 Potassium 4.2 BUN 9 Creatinine 1.17 Glucose 100 Total Bilirubin 0.4 AST 15 ALT 26 Alkaline Phosphatase 89 - Problems (1) COPD exacerbation Current Visit: Yes Status: Acute Plan: Patient is 49 years of age heavy smoker admitted with worsening dyspnea cough congestion chest x-ray is clear I suspect he has underlying COPD also hypoxic coughing add antibiotics including macrolides continue with steroids bronchodilators peers to be hypoxic need workup as an outpatient strongly counseled to stop smoking will also need Chantix nicotine patches possible discharge a.m.
[2024-05-10] MEDS: AZITHROMYCIN 250 MG TAB PO SCH (10:27)
[2024-05-10] MEDS: ACETAMINOPHEN 325 MG TABLET PO PRN (10:40)
[2024-05-10 12:31] VITALS: O2SAT 92
[2024-05-10] MEDS: ONDANSETRON 4 MG/2 ML VIAL IV PRN (17:45)
[2024-05-10] MEDS: AMOX/K CLAV 875 MG TAB PO SCH (19:52)
[2024-05-10] MEDS: PROMETHAZINE-DM 5 ML OSYR PO PRN (19:55)
[2024-05-11 04:40] LABS: Absolute Lymphocytes (CBC) 0.7 K/uL (0.7-4.9); Absolute Monocytes 1.4 K/uL (0.1-1.3); Absolute Neutrophil 12.2 K/uL (1.8-8.0); Basophils % 0.2 % (0-1.3); Hematocrit 49.4 % (39.6-49.0); Hemoglobin 15.9 g/dL (13.6-17.9); Lymphocytes % 4.8 % (15.3-44.8); MCH 29.8 pg (27.0-35.0); MCHC 32.3 g/dL (32.0-36.0); MCV 92.4 fL (80-100); MPV 9.4 fL (7.6-11.3); Monocytes % 9.9 % (3.3-12.3); Platelets 198 thou/uL (152-406); RBC Red Blood Cell Count 5.34 M/uL (4.33-5.43); Red Cell Distribution Width 15.2 % (12.1-15.2)
[2024-05-11 04:42] LABS: Neutrophils % 85.1 % (41.7-73.7)
[2024-05-11 04:54] LABS: Anion Gap 7.9 mEq/L (5.0-15.0); Potassium 4.9 mEq/L (3.5-5.1)
[2024-05-11 05:58] VITALS: BP 147/79; TEMP 98.1
[2024-05-11] MEDS ORDERED: NICOTINE 21 MG/PAT TD ONE ×2 (09:10→09:13)
[2024-05-11] MEDS: NICOTINE 21 MG/PAT TD ONE (09:21)
--- NOTE | 2024-05-11 10:39 | P.DS ---
Admission Date: 05/10/24 Discharge Date: 05/11/24 Disposition: ROUTINE DISCHARGE Discharge Condition: GOOD Reason for Admission: COPD exacerbation Brief History of Present Illness: 49-year-old otherwise healthy male with history of tobacco use presents to the emergency department with chief complaint of shortness of breath. He reports has been having symptoms since Tuesday 05/08 and worsened over the last 2 days. He smokes about a pack a day, has never been diagnosed with COPD or asthma. He was noted to have expiratory wheezing on exam by ED staff. Labs were significant for blood cell count of 8.7 hemoglobin 16.5 hematocrit 5 0.4 lactic acid 1.5 chest x-ray negative for acute findings. He was given nebulizer treatments, steroids in the ED, will be admitted for suspected new onset COPD, dyspnea Hospital Course: Assessment: Dyspnea, tobacco use disorder suspect new onset COPD with exacerbation Patient was admitted to the hospital for dyspnea, suspected new onset COPD with exacerbation. He was admitted to the hospital and given steroids, nebulizer treatments, antibiotics and had improvement in his symptoms. Patient white blood cell count did go from 8-14 but this is likely secondary to the steroids. He is afebrile and no signs of infection on imaging. Patient was seen by pulmonology who recommends a course of steroids, antibiotics, inhalers and to follow-up in the office. Prescription sent to [facility] include for prednisone, Augmentin, Zithromax, Tessalon pearls, Advair, albuterol. Vital Signs/Physical Exam: Temp Pulse Resp BP Pulse Ox 98.1 F 95 H 16 147/79 H 92 05/11/24 04:00 05/11/24 04:00 05/11/24 04:00 05/11/24 04:00 05/11/24 06:50 General: Alert, In no apparent distress, Oriented x3 HEENT: Atraumatic, PERRLA Neck: Supple, JVD not distended Respiratory: Clear to auscultation bilaterally, Normal air movement Cardiovascular: Regular rate/rhythm, Normal S1 S2 Gastrointestinal: Normal bowel sounds, No tenderness Musculoskeletal: No tenderness Integumentary: No rashes Neurological: Normal speech, Normal tone, Normal affect Laboratory Data at Discharge: WBC 14.30 thou/uL (4.3-10.9) H 05/11/24 04:01 Hgb 15.9 g/dL (13.6-17.9) 05/11/24 04:01 Hct 49.4 % (39.6-49.0) H 05/11/24 04:01 Plt Count 198 thou/uL (152-406) D 05/11/24 04:01 PT 11.8 SECONDS (9.4-12.5) 05/10/24 04:35 INR 1.06 05/10/24 04:35 APTT 30.5 SECONDS (24.3-36.9) 05/10/24 04:35 Sodium 138 mEq/L (136-145) 05/11/24 04:01 Potassium 4.9 mEq/L (3.5-5.1) D 05/11/24 04:01 BUN 15 mg/dL (7-18) 05/11/24 04:01 Creatinine 1.10 mg/dL (0.70-1.30) 05/11/24 04:01 Glucose 125 mg/dL (74-106) H 05/11/24 04:01 Total Bilirubin 0.4 mg/dL (0.2-1.0) 05/10/24 04:35 AST 15 U/L (15-37) 05/10/24 04:35 ALT 26 U/L (16-61) 05/10/24 04:35 Alkaline Phosphatase 89 U/L (45-117) 05/10/24 04:35 Home Medications: Albuterol Inhaler [Ventolin Inhaler*] 2 puff IH Q6H PRN #2 inh 05/11/24 Amox/Clavulanate [Augmentin 875-125 Tab*] 875 mg PO BID 5 Days #10 tab 05/11/24 Azithromycin Tab [Zithromax*] 250 mg PO DAILY #4 tab 05/11/24 Benzonatate [Tessalon Perle] 100 mg PO TID #30 cap 05/11/24 Fluticasone Propion/Salmeterol [Advair Hfa 115-21 Mcg Inhaler] 1 puff IH BID #1 inh 05/11/24 predniSONE [Deltasone*] 10 mg PO BID 7 Days #14 tab 05/11/24 New Medications: Fluticasone Propion/Salmeterol [Advair Hfa 115-21 Mcg Inhaler] 1 puff IH BID #1 inh Amox/Clavulanate [Augmentin 875-125 Tab*] 875 mg PO BID 5 Days #10 tab predniSONE [Deltasone*] 10 mg PO BID 7 Days #14 tab Benzonatate [Tessalon Perle] 100 mg PO TID #30 cap Albuterol Inhaler [Ventolin Inhaler*] 2 puff IH Q6H PRN #2 inh PRN Reason: Shortness Of Breath Azithromycin Tab [Zithromax*] 250 mg PO DAILY #4 tab Physician Discharge Instructions: Patient was admitted to the hospital for dyspnea, suspected new onset COPD with exacerbation. He was admitted to the hospital and given steroids, nebulizer treatments, antibiotics and had improvement in his symptoms. Patient white blood cell count did go from 8-14 but this is likely secondary to the steroids. He is afebrile and no signs of infection on imaging. Patient was seen by pulmonology who recommends a course of steroids, antibiotics, inhalers and to follow-up in the office. Prescription sent to [facility] include for prednisone, Augmentin, Zithromax, Tessalon pearls, Advair, albuterol. Diet: Regular Activity: Ad mani Followup: Peter Clarke MD [ACTIVE - CAN ADMIT] - 1-2 Weeks NONE,NONE [Primary Care Provider] - 1 Week Time spent managing pt's care (in minutes): 41
== END 2024-05-11 09:33 | disposition home or self-care (01) ==
LOC: ER 04:20 → 2ND 08:07
PROVIDERS: ADMIT Hospitalist; ATTEND Hospitalist
DX: J44.1 Chronic obstructive pulmonary disease with (acute) exacerbation (principal); F17.210 Nicotine dependence, cigarettes, uncomplicated; K21.9 Gastro-esophageal reflux disease without esophagitis; Z11.52 Encounter for screening for COVID-19
CPT/HCPCS: 87040 ×2; 85025 ×2; 80048; 36415; 85610; 82947; 83605; 85730; 80053; 87804 ×2; 71045; 87811; J7512 ×3; J3535; J7613 ×4; J7644 ×3; J1650 ×2; J2919; J2405; J7030; J0696; G0378